=== PATIENT | female | born 1940 | race Caucasian/White ===

== ENCOUNTER 2018-03-26 14:11 | Outpatient (CLI) | payer MEDICARE, BC ==
[~2018-03-26] VITALS: Ht 175.3 cm; Wt 72.6 kg
[2018-03-26] MEDS ORDERED: RIVA20TA PO (14:40)
[2018-03-26] MEDS ORDERED: CALC600T12 PO (14:40)
[2018-03-26] MEDS ORDERED: GLUC100016 PO (14:40)
[2018-03-26] MEDS ORDERED: BUME2TAB3 PO (14:40)
[2018-03-26] MEDS ORDERED: POTA-51 PO (14:40)
[2018-03-26] MEDS ORDERED: MV-M1TAB57 PO (14:40)
[2018-03-26] MEDS ORDERED: METO-370 PO (14:40)
[2018-03-26] MEDS ORDERED: VITA1TAB33 PO (14:40)
[2018-03-26] MEDS ORDERED: EST30C VG (14:40)
[2018-03-26] MEDS ORDERED: ESCI10TA PO (14:40)
[2018-03-26] MEDS ORDERED: CHOL10003 PO (14:40)
[2018-03-26] MEDS ORDERED: LEVO150T6 PO (14:40)
[2018-03-26] MEDS ORDERED: LORA10TA7 PO (14:59)
== END 2018-03-26 14:49 ==
LOC: PREOP 14:11
PROVIDERS: ATTEND Orthopaedic Surgery
DX: Z01.818 Encounter for other preprocedural examination (principal)

== ENCOUNTER 2018-03-30 10:06 | Inpatient (IN) | payer MEDICARE, BC ==
--- NOTE | 2018-03-26 14:59 | NUR ---
CALLED [facility] IN [place] TO VERIFY THE STRENGTHS AND DATES OF THE PRESCRIPTION MEDICATION FOR THE PATIENT. PREOP ENTERED THE LIST IN THE PATIENT REPORTED IT. [facility] FILLED: 03-15-18 XARELTO 20MG DAILY #90 03-04-18 LORATADINE 10MG DAILY PRN #90 (WAS NOT REPORTED IN PREOP BUT ADDED AT THIS TIME) 02-14-18 PREMARIN VAGINAL CREAM TWICE WEEKLY 01-21-18 POTASSIUM 20MEQ BID #180 (ONLY TAKES ONCE DAILY NEEDED WITH BUMEX) 01-21-18 BUMETANIDE 2MG BID #180 (ONLY TAKES ONCE DAILY NEEDED FOR SWELLING) 01-18-18 METOPROLOL SUCC 50MG 1/2 BID #90 (REPORTED 1 HS) 01-18-18 LEVOTHYROXINE 150MCG DAILY #90 12-30-17 ESCITALOPRAM 10MG DAILY #90 OTC MEDS REPORTED: B COMPLEX DAILY CALCIUM DAILY VITAMIN D DAILY GLUCOSAMINE DAILY MTV DAILY
--- NOTE | 2018-03-30 10:10 | NUR ---
pt ambulated to [facility] with cane. changed into gown. upon returning to pt's room. pt had altered ability to speak/answer questions. word salad. family called to room. daughter reports pt was having some changes this a.m. similar to TIA in past, but answered questions appropriately. daughter notes that communication is much more altered at this time. pt has been off xarelto for surgery. pt unable to report exact amount of time due to communication limitations. pt also c/o headache. VS: T 97.7, HR 127, RR 18, BP 144/[address] willis notified of pt condition. they evaluated pt, cancelled surgery, et recommended pt be evaluated in ER. daughter agreed to have pt seen in our ER. 1047: pt to ER via cart for evaluation.
[2018-03-30] MEDS ORDERED: LACTATED RINGERS 1,000 ML IV PRN (10:17)
[2018-03-30] MEDS ORDERED: CELECOXIB 100 MG (CeleBREX) CAP PO ONE (10:30)
[2018-03-30] MEDS ORDERED: DEXAMETHASONE 4 MG/ML SDV (DECADRON) IV ONE (10:30)
[2018-03-30] MEDS ORDERED: ONDANSETRON 4 MG/2 ML (SDV) Z0FRAN IVP ONE (10:30)
[2018-03-30] MEDS ORDERED: GABAPENTIN 600 MG (NEURONTIN) TAB PO ONE (10:30)
[2018-03-30] MEDS ORDERED: ceFAZolin 2 GM IV Premixed 50 ML IV ONE (10:30)
[2018-03-30] MEDS ORDERED: INTRA-ARTICULAR IU ONE ×4 (10:45)
== END 2018-03-30 10:45 | disposition short-term general hospital (02) | DRG 554 ==
LOC: 4TH 10:06 → SURG 10:07
PROVIDERS: ADMIT Orthopaedic Surgery; ATTEND Orthopaedic Surgery
DX: M17.12 Unilateral primary osteoarthritis, left knee (principal); Z53.09 Procedure and treatment not carried out because of other contraindication
CPT/HCPCS: 93005

== ENCOUNTER 2018-03-30 10:47 | Inpatient (IN) | payer MEDICARE, BC ==
[2018-03-30] VITALS (12 sets, daily range): BP systolic 114–176; BP diastolic 59–105
[~2018-03-30] VITALS: Ht 172.7 cm; Wt 75.8 kg
[~2018-03-30 10:47] MED LIST: BUME2TAB3 PO; CALC600T12 PO; CHOL10003 PO; ESCI10TA PO; EST30C VG; GLUC100016 PO; LEVO150T6 PO; LORA10TA7 PO; METO-370 PO; MV-M1TAB57 PO; POTA-51 PO; RIVA20TA PO; VITA1TAB33 PO
--- NOTE | 2018-03-30 10:59 | NUR ---
TO CT PER CART ACCOMPIED BY SAHIL CELESTIN
[2018-03-30 11:06] LABS: BASOPHILS % (AUTO) 0 % (0-10); EOSINOPHILS # (AUTO) 0.3 10^3/uL (0.0-0.3); EOSINOPHILS % (AUTO) 4 % (0-10); HEMATOCRIT 39 % (35-52); HEMOGLOBIN 13.1 G/DL (11.5-16.0); LYMPHOCYTES # (AUTO) 1.9 X 10^3 (1.0-4.0); LYMPHOCYTES % (AUTO) 28 % (12-44); MEAN CORPUSCULAR HEMOGLOBIN 33 PG (25-34); MEAN CORPUSCULAR HGB CONC 34 G/DL (32-36); MEAN CORPUSCULAR VOLUME 98 FL (80-99); MEAN PLATELET VOLUME 9.3 FL (7.4-10.4); MONOCYTES # (AUTO) 0.8 X 10^3 (0.0-1.0); MONOCYTES % (AUTO) 12 % (0-12); NEUTROPHILS # (AUTO) 3.7 X 10^3 (1.8-7.8); NEUTROPHILS % (AUTO) 55 % (42-75); PLATELET COUNT 225 10^3/uL (130-400); RED CELL DISTRIBUTION WIDTH 14.1 % (10.0-14.5); WHITE BLOOD COUNT 6.8 10^3/uL (4.3-11.0)
[2018-03-30] MEDS ORDERED: ALTEPLASE 100 MG/VIAL (ACTIVASE) IV ONE ×2 (11:11→12:00)
[2018-03-30 11:17] LABS: FIBRIN DEGRADATION PRODUCTS 0.61 UG/ML (0.00-0.49); PROTHROMBIN TIME PATIENT 13.3 SEC (12.2-14.7)
--- NOTE | 2018-03-30 11:20 | Diagnostic Imaging Report ---
PROCEDURE: CT head wo r/o stroke. TECHNIQUE: Multiple contiguous axial images were obtained through the brain without the use of intravenous contrast. INDICATION: Stroke. COMPARISON: None FINDINGS: Moderate generalized cerebral and cerebellar parenchymal volume loss. Moderate leukoaraiosis. No intracranial hemorrhage, mass effect, hydrocephalus or extra-axial fluid collections. No CT evidence of a territorial infarction. Intracranial vascular calcifications. Osseous structures are intact. The visualized paranasal sinuses and mastoids are clear. IMPRESSION: 1. No acute intracranial CT findings. 2. Findings discussed with Dr. Ray Montano at 11:12 a.m. on 03/30/2018. Dictated by: Dictated on workstation # [id number]
[2018-03-30 11:21] LABS: ALANINE AMINOTRANSFERASE 17 U/L (0-55); ALBUMIN 4.1 GM/DL (3.2-4.5); ALKALINE PHOSPHATASE 54 U/L (40-136); BILIRUBIN,TOTAL 0.5 MG/DL (0.1-1.0); BUN/CREATININE RATIO 21; CALCIUM 10.1 MG/DL (8.5-10.1); CARBON DIOXIDE 28 MMOL/L (21-32); CHLORIDE 102 MMOL/L (98-107); CREATININE SERUM 0.78 MG/DL (0.60-1.30); GFR ESTIMATED > 60; GLUCOSE 87 MG/DL (70-105); POTASSIUM 4.3 MMOL/L (3.6-5.0); SODIUM 139 MMOL/L (135-145); TOTAL PROTEIN 7.1 GM/DL (6.4-8.2)
--- NOTE | 2018-03-30 11:23 | ED Neurological Problem ---
General Chief Complaint: Neuro-Stroke Like Symptoms Stated Complaint: POSS STROKE Nursing Triage Note: TO ED PER CART FROM DAY SURG. REPORTS SHE HAS BEEN XARELTO FOR 2-5 DAYS FOR WAS TO HAVE L TOTAL KNEE DAUGHTER NOTICED APX 9AM HAVING TROUBLE SPEAKING ON ADMIT TROUBLE WITH SPEECH. Nursing Sepsis Screen: No Definite Risk Source: patient, family, RN/MD Exam Limitations: clinical condition History of Present Illness Date Seen by Provider: Mar 30, 2018 Time Seen by Provider: 10:51 Initial Comments Here with report of difficulty with speech and communication. Does have history of TIAs in the past and is on Xarelto. She is currently also relative 2 days for a total left knee replacement that was to be done today. During the preop time it was noted that she was having difficulty with speech and some confusion. This apparently started at about 9:00 this morning. This seems to be worsening even now. Does have history of atrial fibrillation as well. Denies recent injury or surgeries. She was rolled over from the preop area to the emergency department. Daughter and are at bedside. Timing/Duration: 1-3 hours Severity: moderate Associated Symptoms: confusion; No fatigue, No loss of consciousness, No muscle spasms, No nausea/vomiting, No numbness in legs/feet, No seizures; slurred speech; No vision changes, No weakness Allergies and Home Medications Allergies Coded Allergies: butorphanol (Verified Allergy, Unknown, TONGUE SWELLED, 03/26/18) codeine (Verified Allergy, Unknown, ITCHING, 03/26/18) Home Medications B Complex with Vitamin C 1 Each Tablet, 1 TAB PO DAILY, (Reported) Bumetanide 2 Mg Tablet, 2 MG PO DAILY PRN for SWELLING, (Reported) Calcium Carbonate 600 Mg Tablet, 600 MG PO DAILY, (Reported) Cholecalciferol (Vitamin D3) 1,000 Unit Tablet, 1,000 UNIT PO DAILY, (Reported) Escitalopram Oxalate 10 Mg Tablet, 10 MG PO DAILY, (Reported) Estrogens Conjugated 30 Gm Cr, 1 APPFUL VG SuWe, (Reported) Glucosamine Sulfate 2Kcl 1,000 Mg Tablet, 1,000 MG PO DAILY, (Reported) Levothyroxine Sodium 150 Mcg Tablet, 150 MCG PO DAILY, (Reported) Loratadine 10 Mg Tablet, 10 MG PO DAILY PRN for ALLERGIES, (Reported) Metoprolol Succinate 50 Mg Tab.er.24h, 50 MG PO HS, (Reported) Mv-Mn/Folic Acid/Calcium/Vit K 1 Each Tablet, 1 TAB PO DAILY, (Reported) Potassium Chloride 20 Meq Tablet.er, 20 MEQ PO DAILY PRN for WHEN TAKING BUMETANIDE, (Reported) Rivaroxaban 20 Mg Tablet, 20 MG PO DAILY, (Reported) Patient Home Medication List Home Medication List Reviewed: Yes Review of Systems Review of Systems Constitutional: see HPI; No chills, No fever Eyes: No Symptoms Reported Ears, Nose, Mouth, Throat: no symptoms reported Respiratory: no symptoms reported Cardiovascular: Hx of Intervention, other (irregular and tachycardic) Gastrointestinal: No abdominal pain, No nausea, No vomiting : No Musculoskeletal: No back pain, No muscle pain Psychiatric/Neurological: See HPI, Cognitive Dysfunction, Headache; Denies Weakness All Other Systems Reviewed Negative Unless Noted: Yes Past Msqzhhz-Bcffoe-Xqmorb Hx Past Med/Social Hx: Reviewed Nursing Past Med/Soc Hx Patient Social History Alcohol Use: Denies Use Recreational Drug Use: No Smoking Status: Never a Smoker Recent Foreign Travel: No Contact w/Someone Who Travel: No Recent Infectious Disease Expo: No Recent Hopitalizations: No Immunizations Up To Date Date of Influenza Vaccine: Nov 09, 2017 Seasonal Allergies Seasonal Allergies: No Past Medical History Surgeries: Yes (R wrist fx, R hip fx, knee scope, breast bx) Respiratory: No Cardiac: Yes Neurological: Yes Genitourinary: No Gastrointestinal: No Musculoskeletal: Yes Arthritis, Fractures Endocrine: Yes HEENT: No Cancer: No Psychosocial: No Integumentary: No Blood Disorders: No Family Medical History Reviewed Nursing Family Hx Cardiovascular disease 19 FATHER Completed stroke 19 MOTHER FH: diabetes mellitus 19 FATHER Physical Exam Vital Signs Vital Signs - First Documented 03/30/18 10:47 Pulse 99 Resp 18 B/P (MAP) 170/96 (120) Pulse Ox 99 O2 Delivery Room Air Capillary Refill : Less Than 3 Seconds Height, Weight, BMI Height: 5'9.00" Weight: 165lbs. 0.0oz. 74.487704qh; 23.6 BMI Method:Stated General Appearance: WD/WN, no apparent distress HEENT: PERRL/EOMI, pharynx normal Neck: full range of motion, supple Respiratory: lungs clear, normal breath sounds Cardiovascular: regular rate, rhythm, no murmur Gastrointestinal: non tender, soft Back: normal inspection, no CVA tenderness, no vertebral tenderness Extremities: non-tender, normal inspection Neurologic/Psychiatric: alert, aphasia Crainal Nerves: abnormal speech; No facial asymmetry, No facial droop, No facial paresthesias, No facial weakness Coordination/Gait: other (abnormal ofhj-ob-bjqz bilateral) Motor/Sensory: no motor deficit, no sensory deficit, no pronator drift Skin: normal color, warm/dry Progress/Results/Core Measures Results/Orders Lab Results Laboratory Tests Test 03/30/18 10:54 03/30/18 10:56 03/30/18 11:35 Range/Units Glucometer 95 70-110 MG/DL White Blood Count 6.8 4.3-11.0 10^3/uL Red Blood Count 3.97 L 4.35-5.85 10^6/uL Hemoglobin 13.1 11.5-16.0 G/DL Hematocrit 39 35-52 % Mean Corpuscular Volume 98 80-99 FL Mean Corpuscular Hemoglobin 33 25-34 PG Mean Corpuscular Hemoglobin Concent 34 32-36 G/DL Red Cell Distribution Width 14.1 10.0-14.5 % Platelet Count 225 130-400 10^3/uL Mean Platelet Volume 9.3 7.4-10.4 FL Neutrophils (%) (Auto) 55 42-75 % Lymphocytes (%) (Auto) 28 12-44 % Monocytes (%) (Auto) 12 0-12 % Eosinophils (%) (Auto) 4 0-10 % Basophils (%) (Auto) 0 0-10 % Neutrophils # (Auto) 3.7 1.8-7.8 X 10^3 Lymphocytes # (Auto) 1.9 1.0-4.0 X 10^3 Monocytes # (Auto) 0.8 0.0-1.0 X 10^3 Eosinophils # (Auto) 0.3 0.0-0.3 10^3/uL Basophils # (Auto) 0.0 0.0-0.1 10^3/uL Prothrombin Time 13.3 12.2-14.7 SEC INR Comment 1.0 0.8-1.4 Activated Partial Thromboplast Time 32 24-35 SEC D-Dimer 0.61 H 0.00-0.49 UG/ML Sodium Level 139 135-145 MMOL/L Potassium Level 4.3 3.6-5.0 MMOL/L Chloride Level 102 98-107 MMOL/L Carbon Dioxide Level 28 21-32 MMOL/L Anion Gap 9 5-14 MMOL/L Blood Urea Nitrogen 16 7-18 MG/DL Creatinine 0.78 0.60-1.30 MG/DL Estimat Glomerular Filtration Rate > 60 BUN/Creatinine Ratio 21 Glucose Level 87 70-105 MG/DL Calcium Level 10.1 8.5-10.1 MG/DL Corrected Calcium 10.0 8.5-10.1 MG/DL Total Bilirubin 0.5 0.1-1.0 MG/DL Aspartate Amino Transf (AST/SGOT) 29 5-34 U/L Alanine Aminotransferase (ALT/SGPT) 17 0-55 U/L Alkaline Phosphatase 54 40-136 U/L Troponin I < 0.028 <0.028 NG/ML Total Protein 7.1 6.4-8.2 GM/DL Albumin 4.1 3.2-4.5 GM/DL Urine Color YELLOW Urine Clarity CLEAR Urine pH 8 5-9 Urine Specific [place] 1.010 L 1.016-1.022 Urine Protein NEGATIVE NEGATIVE Urine Glucose (UA) NEGATIVE NEGATIVE Urine Ketones NEGATIVE NEGATIVE Urine Nitrite NEGATIVE NEGATIVE Urine Bilirubin NEGATIVE NEGATIVE Urine Urobilinogen NORMAL NORMAL MG/DL Urine Leukocyte Esterase NEGATIVE NEGATIVE Urine RBC (Auto) NEGATIVE NEGATIVE Urine RBC NONE /HPF Urine WBC NONE /HPF Urine Squamous Epithelial Cells RARE /HPF Urine Crystals PRESENT H /LPF Urine Amorphous Sediment RARE DUDLEY PHOSPHATE H /LPF Urine Bacteria NEGATIVE /HPF Urine Casts NONE /LPF Urine Mucus NEGATIVE /LPF Urine Culture Indicated NO My Orders Orders - RAY HENSLEY MD Cbc With Automated Diff (03/30/18 10:59) Protime With Inr (03/30/18 10:59) Partial Thromboplastin Time (03/30/18 10:59) Comprehensive Metabolic Panel (03/30/18 10:59) Fibrin Degradation Products (03/30/18 10:59) Troponin I (03/30/18 10:59) Ua Culture If Indicated (03/30/18 10:59) Chest 1 View, Ap/Pa Only (03/30/18 10:59) Catheter(Urinary) Insert & Ass 03,15 (03/30/18 10:59) Ekg Tracing (03/30/18 10:59) Accucheck Stat ONCE (03/30/18 10:59) Saline Lock/Iv-Start (03/30/18 10:59) Saline Lock/Iv-Start (03/30/18 10:59) Vital Signs Stroke Patient Q15M (03/30/18 10:59) Ct Head Wo-R/O Stroke (03/30/18 10:59) O2 (03/30/18 10:59) Intake & Output 06,14,22 (03/30/18 10:59) Monitor-Rhythm Ecg Trace Only (03/30/18 10:59) Dysphagia Screening Tool (03/30/18 10:59) Sao2 W/End-Tidal Monitoring (O Q15M (03/30/18 10:59) Lipid Panel (03/31/18 06:00) I-Stat Bedside Testing (03/30/18 10:59) Ct Angio Head/Neck (03/30/18 11:02) Ct Head Perfusion W/ Contrast (03/30/18 11:02) Alteplase (Activase) (Activase Injection (03/30/18 11:11) Labetalol Injection (Normodyne Injection (03/30/18 11:45) Labetalol Injection (Normodyne Injection (03/30/18 11:28) Accucheck Stat ONCE (03/30/18 11:30) Saline Lock/Iv-Start (03/30/18 11:30) Saline Lock/Iv-Start (03/30/18 11:30) Vital Signs Stroke Patient Q15M (03/30/18 11:30) O2 (03/30/18 11:30) Intake & Output 06,14,22 (03/30/18 11:30) Dysphagia Screening Tool (03/30/18 11:30) Post Thrombolytic Adminstratio (03/30/18 11:30) Iohexol Injection (Omnipaque 350 Mg/Ml 1 (03/30/18 11:30) Contrast Received (Contrast Received) (03/30/18 11:30) Ns (Ivpb) (Sodium Chloride 0.9%) (03/30/18 11:30) Alteplase (Activase) (Activase Injection (03/30/18 12:00) Post Thrombolytic Adminstratio (03/30/18 12:00) Ct Head Wo (03/31/18 12:00) Diltiazem Injection (Cardizem Injection) (03/30/18 12:15) Ns (Ivpb) (Sodium C... W/Diltiazem Injec (03/30/18 12:15) Acetaminophen Tablet (Tylenol Tablet) (03/30/18 12:23) Ondansetron Injection (Zofran Injectio (03/30/18 13:45) Medications Given in ED Current Medications Medications Dose Ordered Sig/Pedro Route Start Time Stop Time Status Last Admin Dose Admin Acetaminophen 500 mg STK-MED ONCE .ROUTE 03/30/18 12:23 03/30/18 12:29 DC 03/30/18 12:30 1,000 MG Alteplase, Recombinant 100 mg STK-MED ONCE IV 03/30/18 11:11 03/30/18 11:17 DC 03/30/18 11:40 100 MG Diltiazem HCl 10 mg ONCE ONCE IVP 03/30/18 12:15 03/30/18 12:16 DC 03/30/18 12:07 10 MG Iohexol 150 ml ONCE ONCE IV 03/30/18 11:30 03/30/18 11:35 DC 03/30/18 11:36 150 ML Labetalol HCl 20 mg STK-MED ONCE .ROUTE 03/30/18 11:28 03/30/18 11:34 DC 03/30/18 11:34 20 MG Ondansetron HCl 4 mg ONCE ONCE IVP 03/30/18 13:45 03/30/18 13:46 DC 03/30/18 13:46 4 MG Sodium Chloride 250 ml ONCE ONCE IV 03/30/18 11:30 03/30/18 11:35 DC 03/30/18 11:36 250 ML Vital Signs/I&O 03/30/18 03/30/18 03/30/18 10:47 11:39 12:19 Pulse 99 93 Resp 18 18 B/P (MAP) 170/96 (120) 152/105 (121) 152/80 (104) Pulse Ox 99 95 O2 Delivery Room Air Room Air Blood Pressure Mean: 120 iStat Bedside Lab Testing Sodium (Na): 138.00 Potassium (K): 4.20 Chloride (CI): 99.00 TCO2: 28.00 Glucose (Glu): 84.00 Urea Nitrogen (BUN)/Urea: 17.00 Creatinine (Crea): 0.70 Anion Gap*: 16.00 FSBG Bedside Testing Finger Stick Blood Glucose: 95 Blood Glucose Action Taken: IN ROOM Progress Progress Note : Progress Note Seen and evaluated. Stroke activation on arrival. Patient is at 2 hours since last known well time essentially at time of arrival to the emergency department. Patient is 5 on the stroke scale for confusion and difficulty with time date as well as inappropriate speech and inability to perform [id number] bilateral. Stroke order set initiated. Rapid CT assessment done. No acute bleed. Patient meets indication for TPA. Risk and benefits were discussed with the patient and family and it was elected to initiate TPA. I also did discuss the case with Dr. Wilson at [facility] stroke team. She agrees with TPA as well. Bolus initiated at 1140. Resolution began shortly after with respect to her symptoms. 1200: Symptoms have resolved and drip is continuing. CT angiogram of the head and neck and CT perfusion head work done and no significant large vessel occlusion noted per preliminary read and discussion with the radiologist. Patient noted to have atrial fibrillation with rapid ventricular response. She did receive 2 boluses of labetalol as diastolic pressure did come above 110 after bolus initiated. Cardizem drip initiated at 10 mg an hour after bolus of 10 mg. Monitor patient. 1300: Rapid ventricular response has resolved as patient still in A. fib which she is and chronically. Blood pressure 160s over 80s currently. We will decrease the Cardizem to 5 mg/h 1310: I did discuss the case with Dr. MCARTHUR and he accepts patient for admission, inpatient status. 1300: I discussed the case with Dr. Wilkes and he accepts patient in consult. 1325: I did discuss the case with Dr. Kingston and he accepts patient in consult. Patient and family agree with plan. Initial ECG Impression Date: Mar 30, 2018 Initial ECG Impression Time: 11:31 Initial ECG Rate: 123 Initial ECG Rhythm: A Fib/Flutter Comment Atrial fibrillation with rapid ventricular response. Right axis deviation. No evidence of ST elevation NH. No previous available for comparison. Interpreted by me. Diagnostic Imaging Diagonstic Imaging: CT Plain Films/CT/US/NM/MRI: head Comments [facility], [place] NAME: FABIAN [facility] REC#: [id number] PT STATUS: REG ER : 1940 PHYSICIAN: RAY HENSLEY MD ADMIT DATE: 03/30/18/ER Draft Date of Exam:03/30/18 CT HEAD WO-R/O STROKE PROCEDURE: CT head wo r/o stroke. TECHNIQUE: Multiple contiguous axial images were obtained through the brain without the use of intravenous contrast. INDICATION: Stroke. COMPARISON: None FINDINGS: Moderate generalized cerebral and cerebellar parenchymal volume loss. Moderate leukoaraiosis. No intracranial hemorrhage, mass effect, hydrocephalus or extra-axial fluid collections. No CT evidence of a territorial infarction. Intracranial vascular calcifications. Osseous structures are intact. The visualized paranasal sinuses and mastoids are clear. IMPRESSION: 1. No acute intracranial CT findings. 2. Findings discussed with Dr. Ray Hensley at 11:12 a.m. on 03/30/2018. Dictated on workstation # [id number] Dict: 03/30/18 1109 Trans: 03/30/18 1120 AMARILYS [id number] Interpreted by: SEUN HURTADO MD Electronically signed by: Suziegokeaton Imaging: Xray Plain Films/CT/US/NM/MRI: chest Comments [facility] [place], [place] NAME: [facility]IAN [facility] REC#: [id number] PT STATUS: REG ER : 1940 PHYSICIAN: RAY HENSLEY MD ADMIT DATE: 03/30/18/ER Draft Date of Exam:03/30/18 CHEST 1 VIEW, AP/PA ONLY INDICATION: Altered mental status. COMPARISON: None available. FINDINGS: Visualized lungs are clear. No pleural effusion or pneumothorax. Cardiomegaly is present with a left pectoral transvenous dual-chamber pacemaker. IMPRESSION: No acute process by portable radiography. Dictated on workstation # [id number] Dict: 03/30/18 1149 Trans: 03/30/18 1153 [id number] Interpreted by: HOMERO NAIDU MD Electronically signed by: Ramírez Imaging: CT Plain Films/CT/US/NM/MRI: head, other Comments [facility] [place], [place] NAME: F[facility]IAN [facility] REC#: [id number] PT STATUS: REG ER : 1940 PHYSICIAN: RAY HENSLEY MD ADMIT DATE: 03/30/18/ER Draft Date of Exam:03/30/18 CT ANGIO HEAD/NECK PROCEDURE: CT angiography of the head and CT angiography of the neck with and without contrast. TECHNIQUE: Contiguous noncontrast images were obtained from the skull base through the vertex. After intravenous contrast administration, helical CT angiography of the neck was performed. Source data was reformatted into multiple MIP projections. Delayed post contrast acquisition was also obtained. INDICATION: Dysphagia. COMPARISON: Noncontrast CT head from earlier same day. FINDINGS: CTA NECK: Included portions of the aortic arch shows mild calcified aortic atherosclerosis. There is also mild calcified atherosclerosis at the origin of the right brachiocephalic and left subclavian arteries. There is mild tortuosity to the bilateral common carotid arteries. These vessels are otherwise normal in course and caliber. Note is also made of mild calcified atherosclerotic disease of the bilateral carotid bulbs extending into the proximal portion of the bilateral internal carotid arteries. This, however, results in less than 20% stenosis on each side. There is also mild and calcified atherosclerosis of the distal intracranial portions of the bilateral internal carotid arteries. Percentage of stenosis is difficult to assess, but there is normal distal downstream opacification. Within the posterior circulation, the left vertebral artery is dominant. The right vertebral artery has a diminutive hypoplastic appearance, but does appear otherwise patent. Note is also made of moderate calcified atherosclerosis of the distal left vertebral artery, but without focal stenosis. Osseous structures show age-related degenerative changes of the cervical spine. No acute bony abnormalities are identified. Included portions of the lung apices are clear. CTA [place]: The A1 segment on the right is unopacified. This, however, may be on a congenital or developmental basis. Otherwise, there is normal opacification of the bilateral anterior and middle cerebral arteries. Anterior communicating artery is well visualized. There is no evidence of aneurysm, intraluminal thrombosis, or vascular malformation within the anterior circulation. Within the posterior circulation, there is normal appearance of the basilar artery. There is normal enhancement of the bilateral superior cerebellar and posterior cerebral arteries. Posterior communicating arteries are not well visualized on either side, but there is no evidence of aneurysm, vascular malformation, nor intraluminal thrombosis within the posterior circulation. CT HEAD POSTCONTRAST: Postcontrast images show no abnormal areas of enhancement. There is no mass effect or midline shift. Note is again made of mild generalized prominence of ventricles and cortical sulci consistent with background of age-related parenchymal volume loss. There are also scattered and confluent areas of decreased attenuation within the periventricular and subcortical deep white matter suggestive of underlying chronic small vessel ischemic disease. There is no large area of loss of normal tyson-white matter junction differentiation to suggest acute territorial infarct. There is no evidence of intra-or extra-axial intracranial hemorrhage on this postcontrast exam. Bony calvarium is intact. Visualized portions of paranasal sinuses and mastoid air cells are clear. IMPRESSION: 1. Moderate scattered calcified atherosclerosis of the head and neck, but no evidence of intraluminal thrombosis, vascular malformation, nor aneurysm. 2. No acute intracranial abnormality. No CT evidence of acute infarct, mass, or hemorrhage. 3. Age-related parenchymal volume loss and chronic appearing small vessel ischemic changes within the deep white matter. 4. 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 Dictated on workstation # [id number] Dict: 03/30/18 1217 Trans: 03/30/18 1239 [facility] [id number] Interpreted by: AURE SEN MD Electronically signed by: Diagonstic Imaging: CT Plain Films/CT/US/NM/MRI: head Comments [facility] [place] NAME: [facility]IAN [facility] REC#: [id number] PT STATUS: REG ER : 1940 PHYSICIAN: RAY HENSLEY MD ADMIT DATE: 03/30/18/ER Draft Date of Exam:03/30/18 CT HEAD PERFUSION W/ CONTRAST INDICATION: Slurred speech. COMPARISON: Noncontrast CT head from earlier same day. TECHNIQUE: Post contrast CT head perfusion scan was performed. FINDINGS: Total CBF less than 30% volume: 0 mL. Total Tmax greater than 6 seconds volume: 0 mL. Total mismatch difference: 0 mL. Total mismatch ratio: None. Hypoperfusion index: Not applicable. Source images were also created and reviewed and show no large defect on the Tmax, cerebral blood flow, nor cerebral volume images. Comparison of the different sequences also demonstrates no appreciable mismatch. IMPRESSION: 1. Normal CT head perfusion study. Dictated on workstation # [id number] Dict: 03/30/18 1201 Trans: 03/30/18 1210 [id number] Interpreted by: AURE SEN MD Electronically signed by: Departure Communication (Admissions) Time/Spoke to Admitting Phy: 13:10 Time/Spoke to Consulting Phy: 13:00 Impression Primary Impression: Cerebrovascular accident due to cerebral artery occlusion Additional Impression: Atrial fibrillation with rapid ventricular response Disposition: ADMITTED INPATIENT Condition: Stable Admissions Decision to Admit Reason: Admit from ER (General) Decision to Admit/Date: Mar 30, 2018 Time/Decision to Admit Time: 13:00 Departure-Patient Inst. Referrals: NO,LOCAL PHYSICIAN (PCP/Family) Primary Care Physician RAY HENSLEY MD Mar 30, 2018 11:23
--- NOTE | 2018-03-30 11:26 | NUR ---
BACK FROM CT
[2018-03-30] MEDS ORDERED: LABETALOL HCL 20 MG/4 ML VIAL ONE (11:28)
[2018-03-30] MEDS ORDERED: NS 250 ML (IVPB) BAG IV ONE (11:30)
[2018-03-30] MEDS ORDERED: RECEIVED CONTRAST (Hold Metformin) IV SCH (11:30)
[2018-03-30] MEDS ORDERED: IOHEXOL 350 MG/ML 150 ML (OMNIPAQUE 350) VIAL IV ONE (11:30)
--- NOTE | 2018-03-30 11:40 | NUR ---
BOLUS OF 6.58 MG INFUSION STARTED AT 61.2 MG/HR
[2018-03-30] MEDS ORDERED: LABETALOL HCL 20 MG/4 ML VIAL IV ONE (11:45)
[2018-03-30 11:46] LABS: BILIRUBIN,URINE NEGATIVE (NEGATIVE); CLARITY,URINE CLEAR; COLOR,URINE YELLOW; GLUCOSE, URINE (UA) NEGATIVE (NEGATIVE); KETONES,URINE NEGATIVE (NEGATIVE); LEUKOCYTE ESTERASE ,URINE NEGATIVE (NEGATIVE); NITRITE,URINE NEGATIVE (NEGATIVE); PH,URINE 8 (5-9); PROTEIN,URINE NEGATIVE (NEGATIVE); UROBILINOGEN,URINE NORMAL (NORMAL)
--- NOTE | 2018-03-30 11:48 | NUR ---
FLUIDS FROM DAY SURG INFUSING
--- NOTE | 2018-03-30 11:49 | NUR ---
FAMILY AT BEDSIDE SPEECH CON'T TO IMPROVE
[2018-03-30 11:52] LABS: AMORPHOUS SEDIMENT,UR RARE AMOR PHOSPHATE /LPF; BACTERIA,URINE NEGATIVE /HPF; SQUAMOUS EPITHELIAL CELL,UR RARE /HPF
--- NOTE | 2018-03-30 11:54 | Diagnostic Imaging Report ---
INDICATION: Altered mental status. COMPARISON: None available. FINDINGS: Visualized lungs are clear. No pleural effusion or pneumothorax. Cardiomegaly is present with a left pectoral transvenous dual-chamber pacemaker. IMPRESSION: No acute process by portable radiography. Dictated by: Dictated on workstation # [id number]
--- NOTE | 2018-03-30 11:57 | NUR ---
C/O R WRIST IV HURTING AREA SOFT FLUSHES WITHOUT PROBLEM MARE Lee RN VERFIED
--- NOTE | 2018-03-30 12:11 | Diagnostic Imaging Report ---
INDICATION: Slurred speech. COMPARISON: Noncontrast CT head from earlier same day. TECHNIQUE: Post contrast CT head perfusion scan was performed. FINDINGS: Total CBF less than 30% volume: 0 mL. Total Tmax greater than 6 seconds volume: 0 mL. Total mismatch difference: 0 mL. Total mismatch ratio: None. Hypoperfusion index: Not applicable. Source images were also created and reviewed and show no large defect on the Tmax, cerebral blood flow, nor cerebral volume images. Comparison of the different sequences also demonstrates no appreciable mismatch. IMPRESSION: 1. Normal CT head perfusion study. Dictated by: Dictated on workstation # [id number]
[2018-03-30] MEDS ORDERED: DILTIAZEM INJECTION 125 MG in NS (IVPB) 100 ML IV SCH (12:15)
[2018-03-30] MEDS ORDERED: DILTIAZEM 25 MG/5 ML INJ (CARDIZEM) VIAL IVP ONE (12:15)
[2018-03-30] MEDS ORDERED: ACETAMINOPHEN 500 MG TAB (TYLENOL) ONE (12:23)
--- NOTE | 2018-03-30 12:24 | NUR ---
CON'T TO C/O HEADACHE REPORTED HER HEAD HURTING ON ADMIT.
--- NOTE | 2018-03-30 12:39 | Diagnostic Imaging Report ---
PROCEDURE: CT angiography of the head and CT angiography of the neck with and without contrast. TECHNIQUE: Contiguous noncontrast images were obtained from the skull base through the vertex. After intravenous contrast administration, helical CT angiography of the neck was performed. Source data was reformatted into multiple MIP projections. Delayed post contrast acquisition was also obtained. INDICATION: Dysphagia. COMPARISON: Noncontrast CT head from earlier same day. FINDINGS: CTA NECK: Included portions of the aortic arch shows mild calcified aortic atherosclerosis. There is also mild calcified atherosclerosis at the origin of the right brachiocephalic and left subclavian arteries. There is mild tortuosity to the bilateral common carotid arteries. These vessels are otherwise normal in course and caliber. Note is also made of mild calcified atherosclerotic disease of the bilateral carotid bulbs extending into the proximal portion of the bilateral internal carotid arteries. This, however, results in less than 20% stenosis on each side. There is also mild and calcified atherosclerosis of the distal intracranial portions of the bilateral internal carotid arteries. Percentage of stenosis is difficult to assess, but there is normal distal downstream opacification. Within the posterior circulation, the left vertebral artery is dominant. The right vertebral artery has a diminutive hypoplastic appearance, but does appear otherwise patent. Note is also made of moderate calcified atherosclerosis of the distal left vertebral artery, but without focal stenosis. Osseous structures show age-related degenerative changes of the cervical spine. No acute bony abnormalities are identified. Included portions of the lung apices are clear. CTA [place]: The A1 segment on the right is unopacified. This, however, may be on a congenital or developmental basis. Otherwise, there is normal opacification of the bilateral anterior and middle cerebral arteries. Anterior communicating artery is well visualized. There is no evidence of aneurysm, intraluminal thrombosis, or vascular malformation within the anterior circulation. Within the posterior circulation, there is normal appearance of the basilar artery. There is normal enhancement of the bilateral superior cerebellar and posterior cerebral arteries. Posterior communicating arteries are not well visualized on either side, but there is no evidence of aneurysm, vascular malformation, nor intraluminal thrombosis within the posterior circulation. CT HEAD POSTCONTRAST: Postcontrast images show no abnormal areas of enhancement. There is no mass effect or midline shift. Note is again made of mild generalized prominence of ventricles and cortical sulci consistent with background of age-related parenchymal volume loss. There are also scattered and confluent areas of decreased attenuation within the periventricular and subcortical deep white matter suggestive of underlying chronic small vessel ischemic disease. There is no large area of loss of normal tyson-white matter junction differentiation to suggest acute territorial infarct. There is no evidence of intra-or extra-axial intracranial hemorrhage on this postcontrast exam. Bony calvarium is intact. Visualized portions of paranasal sinuses and mastoid air cells are clear. IMPRESSION: 1. Moderate scattered calcified atherosclerosis of the head and neck, but no evidence of intraluminal thrombosis, vascular malformation, nor aneurysm. 2. No acute intracranial abnormality. No CT evidence of acute infarct, mass, or hemorrhage. 3. Age-related parenchymal volume loss and chronic appearing small vessel ischemic changes within the deep white matter. 4. 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 Dictated by: Dictated on workstation # [id number]
--- NOTE | 2018-03-30 12:49 | NUR ---
PLACE ON 02 WHEN PATIENT SLEEPS SA02 GOES TO 90%
--- NOTE | 2018-03-30 13:00 | NUR ---
Food Service Tray Attendant requested to provide support to pt's daughter (Debbie). Also offered support to pt's (Kervin) who demonstrates signs of dementia and is hard of hearing. Offered active listening and reassuring presence. Pt is Yarsani and family's noe is a source of strength and comfort at this time.
--- NOTE | 2018-03-30 13:04 | NUR ---
FAMILY BACK TO BEDSIDE.
--- NOTE | 2018-03-30 13:38 | NUR ---
CALLED FOR A ROOM
--- NOTE | 2018-03-30 13:40 | NUR ---
PATIENT C/O NAUSEA. MEDS GIVEN
[2018-03-30] MEDS ORDERED: ONDANSETRON 4 MG/2 ML (SDV) Z0FRAN IVP ONE (13:45)
--- NOTE | 2018-03-30 13:54 | NUR ---
DAUGHTER TO DESK STAES R ARM ITCHING TO ROOM ARM APPEARS SL DISCOLORED. DR ARIZA.
--- NOTE | 2018-03-30 13:58 | NUR ---
DR JESSICA DELUCA B/P CUFF REPORTS TOOK CUFF OFF AND ARM BETTER
--- NOTE | 2018-03-30 14:08 | Consultation-Cardiology ---
HPI-Cardiology Cardiology Consultation: Date of Consultation 03/30/18 Time Seen by a Provider: 14:10 Date of Admission 03-30-18 Attending Physician Earl Correa MD Admitting Physician Belkys,Local Physician Consulting Physician Denis Kingston MD HPI: Chief Complaint: CVA A-fib with RVR Ms. Curtis is a 77 year old female who is being admitted to ICU from the ED. 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 Sahu at [facility]. Her daughter and are at the bedside. I have seen her in the ED. She reports she has chronic a-fib for which she is on Xarelto. However, d/t a scheduled knee replacement which was to be done today she had been off the Xarelto for 2 days. Daughter reports she has been in her usual state of health up until this morning when she began to have confusion and difficulty with speech when continued to progress while waiting for her surgery. She was brought to the ED from out pt surgery. At the time of this exam she is searching for words during conversation. She denies any c/o CP, palpitations, syncope or near syncope. No c/o LE swelling. She reports she does have a PPM which was implanted "several years ago" d/t a slow HR. She reports she take Metoprolol for HR and BP. Review of Systems-Cardiology Review of Systems Constitutional: No chills, No fever Eyes: No vision change Ears/Nose/Throat: No epistaxis, No recent hearing loss Respiratory: As described under HPI Cardiovascular: As described under HPI Gastrointestinal: No constipation, No diarrhea, No nausea, No vomiting Genitourinary: No dysuria, No hematuria : No Musculoskeletal: no symptoms reported Skin: No rash, No ulcerations Psychiatric/Neurological: As described under HPI Hematologic: No bleeding abnormalities All Other Systems Reviewed Negative Unless Noted: Yes IQZ-Zukyrd-[id number] Hx Patient Social History Alcohol Use: Denies Use Recreational Drug Use: No Smoking Status: Never a Smoker Recent Foreign Travel: No Recent Infectious Disease Expo: No Hospitalization with Isolation: Denies Immunizations Up To Date Date of Influenza Vaccine: Nov 09, 2017 Past Medical History PMH As described under Assessment. Family Medical History Family Medical History: Reported h/o of father having CAD and DM. Mother had a CVA. Family History: Cardiovascular disease 19 FATHER Completed stroke 19 MOTHER FH: diabetes mellitus 19 FATHER Allergies and Home Medications Allergies Coded Allergies: butorphanol (Verified Allergy, Unknown, TONGUE SWELLED, 03/26/18) codeine (Verified Allergy, Unknown, ITCHING, 03/26/18) Home Medications B Complex with Vitamin C 1 Each Tablet, 1 TAB PO DAILY, (Reported) Bumetanide 2 Mg Tablet, 2 MG PO DAILY PRN for SWELLING, (Reported) Calcium Carbonate 600 Mg Tablet, 600 MG PO DAILY, (Reported) Cholecalciferol (Vitamin D3) 1,000 Unit Tablet, 1,000 UNIT PO DAILY, (Reported) Escitalopram Oxalate 10 Mg Tablet, 10 MG PO DAILY, (Reported) Estrogens Conjugated 30 Gm Cr, 1 APPFUL VG SuWe, (Reported) Glucosamine Sulfate 2Kcl 1,000 Mg Tablet, 1,000 MG PO DAILY, (Reported) Levothyroxine Sodium 150 Mcg Tablet, 150 MCG PO DAILY, (Reported) Loratadine 10 Mg Tablet, 10 MG PO DAILY PRN for ALLERGIES, (Reported) Metoprolol Succinate 50 Mg Tab.er.24h, 50 MG PO HS, (Reported) Mv-Mn/Folic Acid/Calcium/Vit K 1 Each Tablet, 1 TAB PO DAILY, (Reported) Potassium Chloride 20 Meq Tablet.er, 20 MEQ PO DAILY PRN for WHEN TAKING BUMETANIDE, (Reported) Rivaroxaban 20 Mg Tablet, 20 MG PO DAILY, (Reported) Physical Exam-Cardiology Physical Exam Vital Signs/I&O 03/30/18 03/30/18 03/30/18 03/30/18 21:00 22:00 23:35 23:40 Temp 98.3 Pulse 75 71 Resp 15 14 B/P (MAP) 114/74 (87) 127/65 (85) Pulse Ox 95 94 95 O2 Delivery Room Air Room Air Room Air 03/31/18 03/31/18 03/31/18 03/31/18 00:00 01:00 01:00 01:15 Pulse 69 72 72 73 Resp 12 13 17 B/P (MAP) 113/70 (84) 120/66 (84) Pulse Ox 93 91 93 O2 Delivery Room Air Room Air Nasal Cannula O2 Flow Rate 2.00 03/31/18 03/31/18 03/31/18 03/31/18 02:00 03:00 03:20 04:00 Temp 98.1 Pulse 73 70 70 Resp 20 12 11 B/P (MAP) 107/54 (71) 112/63 (79) 129/69 (89) Pulse Ox 94 95 96 O2 Delivery Nasal Cannula Nasal Cannula Nasal Cannula Nasal Cannula O2 Flow Rate 2.00 2.00 2.00 2.00 03/31/18 03/31/18 03/31/18 03/31/18 04:15 05:00 06:00 07:00 Pulse 69 69 70 Resp 12 9 B/P (MAP) 125/72 (89) 133/71 (91) Pulse Ox 95 98 93 O2 Delivery Nasal Cannula Nasal Cannula Nasal Cannula O2 Flow Rate 2.00 2.00 2.00 03/31/18 03/31/18 03/31/18 03/31/18 07:00 08:00 08:00 08:14 Temp 98.1 Pulse 69 71 Resp 30 18 B/P (MAP) 132/75 (94) 141/78 (99) Pulse Ox 98 99 O2 Delivery Nasal Cannula Nasal Cannula Nasal Cannula O2 Flow Rate 2.00 2.00 2.00 03/31/18 00:00 Intake Total 320 ml Output Total 2200 ml Balance -1880 ml Capillary Refill : Less Than 3 Seconds Constitutional: well-developed, well-nourished, other (Word searching) HEENT: PERRL, hearing is well preserved, oral hygience is good Neck: No carotid bruit; carotid pulses are 2 + bilaterally Respiratory: No accessory muscle use, No respiratory distress; chest expansion is symmetric, chest is bilaterally symmetric, lungs clear to auscultation Cardiovascular: irregularly irregular; No JVD; S1 and S2 Gastrointestinal: No tender; soft, round, audible bowel sounds Rectal: deferred Genital/Rectal: other (Urinary catheter to DD; clear yellow urine) Extremities: no lower extremity edema bilateral Neurologic/Psychiatric: alert (appropriate, word search - multiple attempts to verbalize and location, but does report accurately ), other (word searching) , grossly intact, power is 5/5 both on sides Skin: No rash, No ulcerations; other (brusing to right wrist at site of IV) Data Review Labs Laboratory Tests 03/30/18 10:54: Glucometer 95 03/30/18 10:56: White Blood Count 6.8, Red Blood Count 3.97L, Hemoglobin 13.1, Hematocrit 39, Mean Corpuscular Volume 98, Mean Corpuscular Hemoglobin 33, Mean Corpuscular Hemoglobin Concent 34, Red Cell Distribution Width 14.1, Platelet Count 225, Mean Platelet Volume 9.3, Neutrophils (%) (Auto) 55, Lymphocytes (%) (Auto) 28, Monocytes (%) (Auto) 12, Eosinophils (%) (Auto) 4, Basophils (%) (Auto) 0, Neutrophils # (Auto) 3.7, Lymphocytes # (Auto) 1.9, Monocytes # (Auto) 0.8, Eosinophils # (Auto) 0.3, Basophils # (Auto) 0.0, Prothrombin Time 13.3, INR Comment 1.0, Activated Partial Thromboplast Time 32, D-Dimer 0.61H, Sodium Level 139, Potassium Level 4.3, Chloride Level 102, Carbon Dioxide Level 28, Anion Gap 9, Blood Urea Nitrogen 16, Creatinine 0.78, Estimat Glomerular Filtration Rate > 60, BUN/Creatinine Ratio 21, Glucose Level 87, Calcium Level 10.1, Corrected Calcium 10.0, Total Bilirubin 0.5, Aspartate Amino Transf (AST/ SGOT) 29, Alanine Aminotransferase (ALT/SGPT) 17, Alkaline Phosphatase 54, Troponin I < 0.028, Total Protein 7.1, Albumin 4.1 03/30/18 11:35: Urine Color YELLOW, Urine Clarity CLEAR, Urine pH 8, Urine Specific Chancellor 1.010L, Urine Protein NEGATIVE, Urine Glucose (UA) NEGATIVE, Urine Ketones NEGATIVE, Urine Nitrite NEGATIVE, Urine Bilirubin NEGATIVE, Urine Urobilinogen NORMAL, Urine Leukocyte Esterase NEGATIVE, Urine RBC (Auto) NEGATIVE, Urine RBC NONE, Urine WBC NONE, Urine Squamous Epithelial Cells RARE, Urine Crystals PRESENTH, Urine Amorphous Sediment RARE DUDLEY PHOSPHATEH, Urine Bacteria NEGATIVE , Urine Casts NONE, Urine Mucus NEGATIVE, Urine Culture Indicated NO Radiology NAME: FABIAN [facility] REC#: [id number] PT STATUS: REG ER : 1940 PHYSICIAN: FIONA HENSLEY MD ADMIT DATE: 03/30/18/ER Draft Date of Exam:03/30/18 CT ANGIO HEAD/NECK PROCEDURE: CT angiography of the head and CT angiography of the neck with and without contrast. TECHNIQUE: Contiguous noncontrast images were obtained from the skull base through the vertex. After intravenous contrast administration, helical CT angiography of the neck was performed. Source data was reformatted into multiple MIP projections. Delayed post contrast acquisition was also obtained. INDICATION: Dysphagia. COMPARISON: Noncontrast CT head from earlier same day. FINDINGS: CTA NECK: Included portions of the aortic arch shows mild calcified aortic atherosclerosis. There is also mild calcified atherosclerosis at the origin of the right brachiocephalic and left subclavian arteries. There is mild tortuosity to the bilateral common carotid arteries. These vessels are otherwise normal in course and caliber. Note is also made of mild calcified atherosclerotic disease of the bilateral carotid bulbs extending into the proximal portion of the bilateral internal carotid arteries. This, however, results in less than 20% stenosis on each side. There is also mild and calcified atherosclerosis of the distal intracranial portions of the bilateral internal carotid arteries. Percentage of stenosis is difficult to assess, but there is normal distal downstream opacification. Within the posterior circulation, the left vertebral artery is dominant. The right vertebral artery has a diminutive hypoplastic appearance, but does appear otherwise patent. Note is also made of moderate calcified atherosclerosis of the distal left vertebral artery, but without focal stenosis. Osseous structures show age-related degenerative changes of the cervical spine. No acute bony abnormalities are identified. Included portions of the lung apices are clear. CTA [place]: The A1 segment on the right is unopacified. This, however, may be on a congenital or developmental basis. Otherwise, there is normal opacification of the bilateral anterior and middle cerebral arteries. Anterior communicating artery is well visualized. There is no evidence of aneurysm, intraluminal thrombosis, or vascular malformation within the anterior circulation. Within the posterior circulation, there is normal appearance of the basilar artery. There is normal enhancement of the bilateral superior cerebellar and posterior cerebral arteries. Posterior communicating arteries are not well visualized on either side, but there is no evidence of aneurysm, vascular malformation, nor intraluminal thrombosis within the posterior circulation. CT HEAD POSTCONTRAST: Postcontrast images show no abnormal areas of enhancement. There is no mass effect or midline shift. Note is again made of mild generalized prominence of ventricles and cortical sulci consistent with background of age-related parenchymal volume loss. There are also scattered and confluent areas of decreased attenuation within the periventricular and subcortical deep white matter suggestive of underlying chronic small vessel ischemic disease. There is no large area of loss of normal tyson-white matter junction differentiation to suggest acute territorial infarct. There is no evidence of intra-or extra-axial intracranial hemorrhage on this postcontrast exam. Bony calvarium is intact. Visualized portions of paranasal sinuses and mastoid air cells are clear. IMPRESSION: 1. Moderate scattered calcified atherosclerosis of the head and neck, but no evidence of intraluminal thrombosis, vascular malformation, nor aneurysm. 2. No acute intracranial abnormality. No CT evidence of acute infarct, mass, or hemorrhage. 3. Age-related parenchymal volume loss and chronic appearing small vessel ischemic changes within the deep white matter. 4. 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 Sahu at [facility] - last interrogation Mar 02, 2018 HTN Discussion and Recomendations Non-hemorrhagic CVA for which she received tPA in the ED on 03-30-18. We advise Xarelto 20mg be resumed 24 hours after tPA dose which would be approx 1330 on . PPM implanted d/t bradycardia per pt report. This is followed by Dr. Sahu at [facility] in [place] - device reportedly last interrogated on (Dr. Sahu's office called by ICU nurse to verify device is NOT an AICD and last interrogation date) Chronic a-fib - presented with a-fib with RVR - rate improved with Cardizem gtt HTN - not well controlled - resume BB - Toprol XL 50mg daily Request records from [facility] - Dr. Sahu Management of stroke per [facility] team Monitor lab Further recs will be based on her hospital course We would like to thank medical services for this consult BAIMA,DEEPA L DIRECTOR DENTAL SERVICES Mar 30, 2018 14:08
--- NOTE | 2018-03-30 14:10 | NUR ---
CALLED TO GIVE REPORT STAFF DID NOT ANSWER PHONE
[2018-03-30] MEDS ORDERED: meTOproloL SUCCINATE 50 MG (TOPROL XL) TAB PO NR (15:00)
--- NOTE | 2018-03-30 15:21 | History & Physical-Hospitalist ---
History of Present Illness HPI/Chief Complaint The patient is a 77-year-old white female who was admitted after she presented to the emergency room with stroke symptoms. 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 She had previously taken Xarelto for atrial fibrillation. This had been stopped for the previous 2 days. While in the process she was noted to have difficulty speaking and was sent to the emergency room for further evaluation. She reports that she was and still is frustrated by her inability to say what she wishes to. She really exhibits no motor abnormalities. She received TPA and was felt to be somewhat improved before she left the emergency room. The findings were automated through the stroke program. Date Seen 03/30/18 Time Seen by a Provider: 15:19 Attending Physician Earl Mcarthur MD PCP No,Local Physician Referring Physician Date of Admission Mar 30, 2018 at 14:01 Home Medications & Allergies Home Medications Reviewed patient Home Medication Reconciliation performed by pharmacy medication reconciliations resident care technician and/or nursing. Patients Allergies have been reviewed. Allergies Allergies Coded Allergies butorphanol (Verified Allergy, Unknown, TONGUE SWELLED, 03/26/18) codeine (Verified Allergy, Unknown, ITCHING, 03/26/18) Past Dbdkhtb-Snejzq-Ywovtl Hx Past Med/Social Hx: Reviewed Nursing Past Med/Soc Hx Patient Social History Alcohol Use: Denies Use Recreational Drug Use: No Smoking Status: Never a Smoker Recent Foreign Travel: No Contact w/other who traveled: No Recent Hopitalizations: No Recent Infectious Disease Expo: No Immunizations Up To Date Date of Influenza Vaccine: Nov 09, 2017 Seasonal Allergies Seasonal Allergies: No Past Medical History Musculoskeletal: Arthritis, Fractures History of Blood Disorders: No Family History Reviewed Nursing Family Hx Cardiovascular disease 19 FATHER Completed stroke 19 MOTHER FH: diabetes mellitus 19 FATHER Physical Exam Physical Exam Vital Signs Vital Signs - First Documented 03/30/18 03/30/18 10:47 14:26 Pulse 99 Resp 18 B/P (MAP) 170/96 (120) Pulse Ox 99 O2 Delivery Room Air O2 Flow Rate 2.00 Capillary Refill : Less Than 3 Seconds Height, Weight, BMI Height: 5'9.00" Weight: 165lbs. 0.0oz. [id number]; 23.6 BMI Method:Stated Results Results/Procedures Labs Laboratory Tests 03/30/18 10:56 Patient resulted labs reviewed. EARL MCARTHUR MD Mar 30, 2018 15:21
--- NOTE | 2018-03-30 15:21 | Pulmonary Consultation ---
History of Present Illness History of Present Illness Date of Consultation 03/30/18 15:16 Time Seen by Provider: 15:22 Date of Admission History of Present Illness 77yo with hx of Afib presented to ED secondary to progressive confusion, and dysphonia. denies CP, palpitations, syncope. In the ED she was dx with acute CVA and was treated with TPA. She was scheduled for left total knee replacement today. She has been off xeralto for 2 days. At her preop visit she was found to have confusion and dysphonia. I am consulted for ICU management. PT does have a hx of TIAs in the past. Allergies and Home Medications Allergies Coded Allergies: butorphanol (Verified Allergy, Unknown, TONGUE SWELLED, 03/26/18) codeine (Verified Allergy, Unknown, ITCHING, 03/26/18) Home Medications B Complex with Vitamin C 1 Each Tablet, 1 TAB PO DAILY, (Reported) Bumetanide 2 Mg Tablet, 2 MG PO DAILY PRN for SWELLING, (Reported) Calcium Carbonate 600 Mg Tablet, 600 MG PO DAILY, (Reported) Cholecalciferol (Vitamin D3) 1,000 Unit Tablet, 1,000 UNIT PO DAILY, (Reported) Escitalopram Oxalate 10 Mg Tablet, 10 MG PO DAILY, (Reported) Estrogens Conjugated 30 Gm Cr, 1 APPFUL VG SuWe, (Reported) Glucosamine Sulfate 2Kcl 1,000 Mg Tablet, 1,000 MG PO DAILY, (Reported) Levothyroxine Sodium 150 Mcg Tablet, 150 MCG PO DAILY, (Reported) Loratadine 10 Mg Tablet, 10 MG PO DAILY PRN for ALLERGIES, (Reported) Metoprolol Succinate 50 Mg Tab.er.24h, 50 MG PO HS, (Reported) Mv-Mn/Folic Acid/Calcium/Vit K 1 Each Tablet, 1 TAB PO DAILY, (Reported) Potassium Chloride 20 Meq Tablet.er, 20 MEQ PO DAILY PRN for WHEN TAKING BUMETANIDE, (Reported) Rivaroxaban 20 Mg Tablet, 20 MG PO DAILY, (Reported) Past Qqhflar-Bzzbgl-Rymmze Hx Past Med/Social Hx: Reviewed Nursing Past Med/Soc Hx Patient Social History Alcohol Use: Denies Use Recreational Drug Use: No Smoking Status: Never a Smoker Recent Foreign Travel: No Contact w/Someone Who Travel: No Recent Infectious Disease Expo: No Recent Hopitalizations: No Immunizations Up To Date Date of Influenza Vaccine: Nov 09, 2017 Seasonal Allergies Seasonal Allergies: No Past Medical History Surgeries: Yes (R wrist fx, R hip fx, knee scope, breast bx) Respiratory: No Cardiac: Yes Neurological: Yes Genitourinary: No Gastrointestinal: No Musculoskeletal: Yes Arthritis, Fractures Endocrine: Yes HEENT: No Cancer: No Psychosocial: No Integumentary: No Blood Disorders: No Family Medical History Reviewed Nursing Family Hx Cardiovascular disease 19 FATHER Completed stroke 19 MOTHER FH: diabetes mellitus 19 FATHER Sepsis Event Evaluation Height, Weight, BMI Height: 5'9.00" Weight: 165lbs. 0.0oz. 74.871686kt; 23.6 BMI Method:Stated Exam Exam Vital Signs Date Time Temp Pulse Resp B/P (MAP) Pulse Ox O2 Delivery O2 Flow Rate FiO2 03/30/18 15:06 80 03/30/18 14:26 84 18 158/80 (106) 99 Nasal Cannula 2.00 03/30/18 12:19 93 18 152/80 (104) 95 Room Air 03/30/18 11:39 152/105 (121) 03/30/18 10:47 99 18 170/96 (120) 99 Room Air Height & Weight Height: 5'9.00" Weight: 165lbs. 0.0oz. 74.827918zs; 23.6 BMI Method:Stated Capillary Refill: Less Than 3 Seconds Gastrointestinal: non tender, soft Results Lab Laboratory Tests 03/30/18 10:56 Assessment/Plan Assessment/Plan Nonhemorrhagic CVA s/p TPA -Check echo -Carotid dopplers Chronic Afib with RVR -Xarelto has been on hold for 2days in prep for knee replacement HTN GUSTAVO RICHARDS DO Mar 30, 2018 15:21
--- NOTE | 2018-03-30 15:38 | NUR ---
MED REC WAS COMPLETED IN PREOP A FEW DAYS AGO, I REVIEWED THE MEDICATIONS THEY WERE REPORTED THEN.
[2018-03-30] MEDS ORDERED: DILTIAZEM 125 MG/NS 100 ML IV SCH ×2 (16:15)
[2018-03-30] MEDS ORDERED: ONDANSETRON 4 MG/2 ML (SDV) Z0FRAN IV PRN (16:15)
--- NOTE | 2018-03-30 17:22 | Consultation-Cardiology ---
HPI-Cardiology Cardiology Consultation: Date of Consultation 03/30/18 Time Seen by a Provider: 16:15 Date of Admission Attending Physician Earl Correa MD Admitting Physician No,Local Physician Consulting Physician ROSA MAXWELL MD, MA, FACP, FACC, FSCAI, CCDS Physician requesting consult: Dr Correa Primary transfer knitter: Dr Sahu ([place], [place]) HPI: Chief Complaint: CC: CVA, A-fib with RVR Ms. Curtis is a 77 year old female who is being admitted to ICU from the ED. Her primary transfer knitter is Dr. Sahu at [facility]. Her daughter and are at the bedside. I have seen her in the ED. She reports she has chronic a-fib for which she is on Xarelto. However, d/t a scheduled knee replacement which was to be done today she had been off the Xarelto for 2 days. Daughter reports she has been in her usual state of health up until this morning when she began to have confusion and difficulty with speech when continued to progress while waiting for her surgery. She was brought to the ED from out pt surgery. At the time of this exam she is searching for words during conversation. She denies any c/o CP, palpitations, syncope or near syncope. No c/o LE swelling. She reports she does have a PPM which was implanted "several years ago" d/t a slow HR. She reports she take Metoprolol for HR and BP. Review of Systems-Cardiology Review of Systems Constitutional: No chills, No fever Eyes: No vision change Ears/Nose/Throat: No epistaxis, No recent hearing loss Respiratory: As described under HPI Cardiovascular: As described under HPI Gastrointestinal: No constipation, No diarrhea, No nausea, No vomiting Genitourinary: No dysuria, No hematuria : No Musculoskeletal: no symptoms reported Skin: No rash, No ulcerations Psychiatric/Neurological: As described under HPI Hematologic: No bleeding abnormalities All Other Systems Reviewed Negative Unless Noted: Yes QOW-Ptsusf-Oqxepq Hx Patient Social History Alcohol Use: Denies Use Recreational Drug Use: No Smoking Status: Never a Smoker Recent Foreign Travel: No Recent Infectious Disease Expo: No Hospitalization with Isolation: Denies Immunizations Up To Date Date of Influenza Vaccine: Nov 09, 2017 Past Medical History PMH As described under Assessment. Family Medical History Family Medical History: Reported h/o of father having CAD and DM. Mother had a CVA. Family History: Cardiovascular disease 19 FATHER Completed stroke 19 MOTHER FH: diabetes mellitus 19 FATHER Allergies and Home Medications Allergies Coded Allergies: butorphanol (Verified Allergy, Unknown, TONGUE SWELLED, 03/26/18) codeine (Verified Allergy, Unknown, ITCHING, 03/26/18) Home Medications B Complex with Vitamin C 1 Each Tablet, 1 TAB PO DAILY, (Reported) Bumetanide 2 Mg Tablet, 2 MG PO DAILY PRN for SWELLING, (Reported) Calcium Carbonate 600 Mg Tablet, 600 MG PO DAILY, (Reported) Cholecalciferol (Vitamin D3) 1,000 Unit Tablet, 1,000 UNIT PO DAILY, (Reported) Escitalopram Oxalate 10 Mg Tablet, 10 MG PO DAILY, (Reported) Estrogens Conjugated 30 Gm Cr, 1 APPFUL VG SuWe, (Reported) Glucosamine Sulfate 2Kcl 1,000 Mg Tablet, 1,000 MG PO DAILY, (Reported) Levothyroxine Sodium 150 Mcg Tablet, 150 MCG PO DAILY, (Reported) Loratadine 10 Mg Tablet, 10 MG PO DAILY PRN for ALLERGIES, (Reported) Metoprolol Succinate 50 Mg Tab.er.24h, 50 MG PO HS, (Reported) Mv-Mn/Folic Acid/Calcium/Vit K 1 Each Tablet, 1 TAB PO DAILY, (Reported) Potassium Chloride 20 Meq Tablet.er, 20 MEQ PO DAILY PRN for WHEN TAKING BUMETANIDE, (Reported) Rivaroxaban 20 Mg Tablet, 20 MG PO DAILY, (Reported) Patient Home Medication List Home Medication List Reviewed: Yes Physical Exam-Cardiology Physical Exam Vital Signs/I&O 03/30/18 03/30/18 03/30/18 03/30/18 10:47 11:39 12:19 13:00 Pulse 99 93 80 Resp 18 18 12 B/P (MAP) 170/96 (120) 152/105 (121) 152/80 (104) 151/73 (99) Pulse Ox 99 95 92 O2 Delivery Room Air Room Air Room Air 03/30/18 03/30/18 03/30/18 03/30/18 14:26 14:50 14:50 15:06 Temp 98.0 Pulse 84 81 80 Resp 18 21 B/P (MAP) 158/80 (106) 151/73 (99) Pulse Ox 99 94 O2 Delivery Nasal Cannula Room Air Room Air O2 Flow Rate 2.00 03/30/18 16:00 Pulse Ox 94 O2 Delivery Room Air Capillary Refill : Less Than 3 Seconds Constitutional: well-developed, well-nourished, other (Word searching) HEENT: PERRL, hearing is well preserved, oral hygience is good Neck: No carotid bruit; carotid pulses are 2 + bilaterally Respiratory: No accessory muscle use, No respiratory distress; chest expansion is symmetric, chest is bilaterally symmetric, lungs clear to auscultation Cardiovascular: irregularly irregular; No JVD; S1 and S2 Gastrointestinal: No tender; soft, round, audible bowel sounds Rectal: deferred Genital/Rectal: other (Urinary catheter to DD; clear yellow urine) Extremities: no lower extremity edema bilateral Neurologic/Psychiatric: alert (appropriate, word search - multiple attempts to verbalize and location, but does report accurately ), other (word searching) , grossly intact, power is 5/5 both on sides Skin: No rash, No ulcerations; other (bruising to right wrist at site of IV) Data Review Labs Laboratory Tests 03/30/18 10:54: Glucometer 95 03/30/18 10:56: White Blood Count 6.8, Red Blood Count 3.97L, Hemoglobin 13.1, Hematocrit 39, Mean Corpuscular Volume 98, Mean Corpuscular Hemoglobin 33, Mean Corpuscular Hemoglobin Concent 34, Red Cell Distribution Width 14.1, Platelet Count 225, Mean Platelet Volume 9.3, Neutrophils (%) (Auto) 55, Lymphocytes (%) (Auto) 28, Monocytes (%) (Auto) 12, Eosinophils (%) (Auto) 4, Basophils (%) (Auto) 0, Neutrophils # (Auto) 3.7, Lymphocytes # (Auto) 1.9, Monocytes # (Auto) 0.8, Eosinophils # (Auto) 0.3, Basophils # (Auto) 0.0, Prothrombin Time 13.3, INR Comment 1.0, Activated Partial Thromboplast Time 32, D-Dimer 0.61H, Sodium Level 139, Potassium Level 4.3, Chloride Level 102, Carbon Dioxide Level 28, Anion Gap 9, Blood Urea Nitrogen 16, Creatinine 0.78, Estimat Glomerular Filtration Rate > 60, BUN/Creatinine Ratio 21, Glucose Level 87, Calcium Level 10.1, Corrected Calcium 10.0, Total Bilirubin 0.5, Aspartate Amino Transf (AST/ SGOT) 29, Alanine Aminotransferase (ALT/SGPT) 17, Alkaline Phosphatase 54, Troponin I < 0.028, Total Protein 7.1, Albumin 4.1 03/30/18 11:35: Urine Color YELLOW, Urine Clarity CLEAR, Urine pH 8, Urine Specific [place] 1.010L, Urine Protein NEGATIVE, Urine Glucose (UA) NEGATIVE, Urine Ketones NEGATIVE, Urine Nitrite NEGATIVE, Urine Bilirubin NEGATIVE, Urine Urobilinogen NORMAL, Urine Leukocyte Esterase NEGATIVE, Urine RBC (Auto) NEGATIVE, Urine RBC NONE, Urine WBC NONE, Urine Squamous Epithelial Cells RARE, Urine Crystals PRESENTH, Urine Amorphous Sediment RARE DUDLEY PHOSPHATEH, Urine Bacteria NEGATIVE , Urine Casts NONE, Urine Mucus NEGATIVE, Urine Culture Indicated NO A/P-Cardiology Assessment/Admission Diagnosis Non-hemorrhagic CVA diagnosed on 03-30-18 with confusion and aphasia - treated with tPA H/O TIA x 2 in the past Chronic A-fib with RVR OAC with Xarelto - had been withheld for 2 days prior in preparation for knee replacement H/O PPM d/t bradycardia (per pt report) - [employer] - followed by Dr. Sahu at [facility] - last interrogation Mar 02, 2018 HTN Discussion and Recomendations Non-hemorrhagic CVA for which she received tPA in the ED on 03-30-18. We advise Xarelto 20mg be resumed 24 hours after tPA dose which would be approx 1330 on . PPM implanted d/t bradycardia per pt report. This is followed by Dr. Sahu at [facility] in [place], [place] - device reportedly last interrogated on (Dr. Sahu's office called by ICU nurse to verify device is NOT an AICD and last interrogation date) Chronic a-fib - presented with a-fib with RVR - rate improved with Cardizem gtt HTN - not well controlled - resume BB - Toprol XL 50mg daily Request records from [facility] - Dr. Sahu Management of stroke per [facility] team Monitor lab Further recs will be based on her hospital course We would like to thank medical services for this consult Clinical Quality Measures DVT/VTE Risk/Contraindication: Risk Factor Score Per Nursin RFS Level Per Nursing on Admit: 2=Moderate ROSA MAXWELL MD FACP FAC CCDS Mar 30, 2018 17:22
[2018-03-30] MEDS: NS IV 1000 ML 1,000 ML IV SCH (17:30)
[2018-03-30] MEDS ORDERED: ACETAMINOPHEN 325 MG TABLET PO NR (20:18)
[2018-03-31] VITALS (14 sets, daily range): BP systolic 107–171; BP diastolic 54–98
[2018-03-31] MEDS ORDERED: ACETAMINOPHEN 325 MG TABLET ONE (01:39)
[2018-03-31] MEDS ORDERED: ACETAMINOPHEN 325 MG TABLET PO ONE (04:15)
--- NOTE | 2018-03-31 04:27 | Pulmonary Progress Note ---
Subjective Time Seen by a Provider: 04:51 Subjective/Events-last exam Dysphonia is now resolved. PT is back to her baseline. Sepsis Event Evaluation Height, Weight, BMI Height: 5'8.00" Weight: 166lbs. 0.0oz. 75.482591zy; 25.2 BMI Method:Stated Exam Exam Vital Signs Date Time Temp Pulse Resp B/P (MAP) Pulse Ox O2 Delivery O2 Flow Rate FiO2 03/31/18 04:15 95 Nasal Cannula 2.00 03/31/18 03:20 98.1 Nasal Cannula 2.00 03/31/18 03:00 70 12 112/63 (79) 95 Nasal Cannula 2.00 03/31/18 02:00 73 20 107/54 (71) 94 Nasal Cannula 2.00 03/31/18 01:15 73 17 93 Nasal Cannula 2.00 03/31/18 01:00 72 13 120/66 (84) 91 Room Air 03/31/18 01:00 72 03/31/18 00:00 69 12 113/70 (84) 93 Room Air 03/30/18 23:40 95 Room Air 03/30/18 23:35 98.3 03/30/18 22:00 71 14 127/65 (85) 94 Room Air 03/30/18 21:00 75 15 114/74 (87) 95 Room Air 03/30/18 20:00 93 Room Air 03/30/18 20:00 73 17 125/59 (81) 92 Room Air 03/30/18 19:50 98.6 76 18 93 Room Air 03/30/18 19:00 70 03/30/18 19:00 70 10 137/63 (87) 96 Room Air 03/30/18 18:00 176 13 176/87 (116) 94 Room Air 03/30/18 17:00 90 11 152/70 (97) 98 Room Air 03/30/18 16:00 94 Room Air 03/30/18 16:00 79 11 141/67 (91) 93 Room Air 03/30/18 15:06 80 03/30/18 15:00 80 11 162/102 (122) 92 Room Air 03/30/18 14:50 98.0 81 21 151/73 (99) 94 Room Air 03/30/18 14:50 Room Air 03/30/18 14:26 84 18 158/80 (106) 99 Nasal Cannula 2.00 03/30/18 12:19 93 18 152/80 (104) 95 Room Air 03/30/18 11:39 152/105 (121) 03/30/18 10:47 99 18 170/96 (120) 99 Room Air I & O 03/31/18 07:00 Intake Total 470 ml Output Total 2550 ml Balance -2080 ml Height & Weight Height: 5'8.00" Weight: 166lbs. 0.0oz. 75.473800hd; 25.2 BMI Method:Stated General Appearance: No Apparent Distress, WD/WN HEENT: PERRL/EOMI, Pharynx Normal Neck: Full Range of Motion, Non Tender, Supple Respiratory: Chest Non Tender, Lungs Clear, No Accessory Muscle Use, No Respiratory Distress Cardiovascular: Regular Rate, Rhythm, No Edema Capillary Refill: Less Than 3 Seconds Gastrointestinal: non tender, soft Neurologic/Psychiatric: Alert, Oriented x3 Skin: Normal Color Results Lab Laboratory Tests 03/30/18 10:56 Assessment/Plan Assessment/Plan Nonhemorrhagic CVA s/p TPA -Check echo -Carotid dopplers -Check CT of head w/o contrast today r/o bleed Chronic Afib with RVR -Xarelto has been on hold for 2days in prep for knee replacement -Cardizem gtt. HTN GUSTAVO RICHARDS DO Mar 31, 2018 04:27
[2018-03-31] MEDS ORDERED: ACETAMINOPHEN 325 MG TABLET PO PRN (05:00)
[2018-03-31] MEDS ORDERED: POTASSIUM CL 10MEQ/50ML IVPB 50 ML IV SCH (06:00)
[2018-03-31] MEDS ORDERED: KCL 20 MEQ TAB (K-DUR) PO SCH (06:00)
[2018-03-31] MEDS ORDERED: MAGNESIUM 1 GM/100 ML IVPB 100 ML IV SCH (06:00)
--- NOTE | 2018-03-31 07:31 | Diagnostic Imaging Report ---
INDICATION: Stroke, cardiac pacemaker COMPARISON: 03/30/2018 FINDINGS: Single view of the chest demonstrates stable cardiac enlargement without pulmonary edema. There is no pneumothorax, effusion or infiltrate. Pacemaker is stable. Osseous structures are age-appropriate. IMPRESSION: Stable cardiac enlargement without pulmonary edema or infiltrate. Dictated by: Dictated on workstation # [id number]
--- NOTE | 2018-03-31 08:44 | Progress Note-Cardiology ---
Cardiology SOAP Progress Note Subjective: Sitting up in bed, alert, oriented x 3. States she is feeling much better today. No difficulty speaking. No c/o CP, palpitations or dyspnea Objective: I&O/Vital Signs 03/30/18 03/30/18 03/30/18 03/31/18 22:00 23:35 23:40 00:00 Temp 98.3 Pulse 71 69 Resp 14 12 B/P (MAP) 127/65 (85) 113/70 (84) Pulse Ox 94 95 93 O2 Delivery Room Air Room Air Room Air 03/31/18 03/31/18 03/31/18 03/31/18 01:00 01:00 01:15 02:00 Pulse 72 72 73 73 Resp 13 17 20 B/P (MAP) 120/66 (84) 107/54 (71) Pulse Ox 91 93 94 O2 Delivery Room Air Nasal Cannula Nasal Cannula O2 Flow Rate 2.00 2.00 03/31/18 03/31/18 03/31/18 03/31/18 03:00 03:20 04:00 04:15 Temp 98.1 Pulse 70 70 Resp 12 11 B/P (MAP) 112/63 (79) 129/69 (89) Pulse Ox 95 96 95 O2 Delivery Nasal Cannula Nasal Cannula Nasal Cannula Nasal Cannula O2 Flow Rate 2.00 2.00 2.00 2.00 03/31/18 03/31/18 03/31/18 03/31/18 05:00 06:00 07:00 07:00 Pulse 69 69 70 69 Resp 12 9 30 B/P (MAP) 125/72 (89) 133/71 (91) 132/75 (94) Pulse Ox 98 93 98 O2 Delivery Nasal Cannula Nasal Cannula Nasal Cannula O2 Flow Rate 2.00 2.00 2.00 03/31/18 03/31/18 03/31/18 03/31/18 08:00 08:00 08:00 08:14 Temp 98.1 Pulse 71 Resp 18 B/P (MAP) 141/78 (99) Pulse Ox 99 96 O2 Delivery Nasal Cannula Room Air Nasal Cannula O2 Flow Rate 2.00 2.00 03/31/18 00:00 Intake Total 320 ml Output Total 2200 ml Balance -1880 ml Weight (Pounds): 167 Weight (Ounces): 2.0 Weight (Calculated Kilograms): 75.816935 Constitutional: AAO x 3, well-developed, well-nourished Respiratory: No accessory muscle use, No respiratory distress; chest expansion is symmetric, chest is bilaterally symmetric, lungs clear to auscultation Cardiovascular: irregularly irregular; No JVD; S1 and S2 Gastrointestional: No tender; soft, round, audible bowel sounds Genital/Rectal: other (Urinary catheter to DD; clear yellow urine) Extremities: no lower extremity edema bilateral Neurologic/Psychiatric: grossly intact, power is 5/5 both on sides Skin: No rash, No ulcerations Results/Procedures: Labs Laboratory Tests 03/30/18 10:54: Glucometer 95 03/30/18 10:56: White Blood Count 6.8, Red Blood Count 3.97L, Hemoglobin 13.1, Hematocrit 39, Mean Corpuscular Volume 98, Mean Corpuscular Hemoglobin 33, Mean Corpuscular Hemoglobin Concent 34, Red Cell Distribution Width 14.1, Platelet Count 225, Mean Platelet Volume 9.3, Neutrophils (%) (Auto) 55, Lymphocytes (%) (Auto) 28, Monocytes (%) (Auto) 12, Eosinophils (%) (Auto) 4, Basophils (%) (Auto) 0, Neutrophils # (Auto) 3.7, Lymphocytes # (Auto) 1.9, Monocytes # (Auto) 0.8, Eosinophils # (Auto) 0.3, Basophils # (Auto) 0.0, Prothrombin Time 13.3, INR Comment 1.0, Activated Partial Thromboplast Time 32, D-Dimer 0.61H, Sodium Level 139, Potassium Level 4.3, Chloride Level 102, Carbon Dioxide Level 28, Anion Gap 9, Blood Urea Nitrogen 16, Creatinine 0.78, Estimat Glomerular Filtration Rate > 60, BUN/Creatinine Ratio 21, Glucose Level 87, Calcium Level 10.1, Corrected Calcium 10.0, Total Bilirubin 0.5, Aspartate Amino Transf (AST/ SGOT) 29, Alanine Aminotransferase (ALT/SGPT) 17, Alkaline Phosphatase 54, Troponin I < 0.028, Total Protein 7.1, Albumin 4.1 03/30/18 11:35: Urine Color YELLOW, Urine Clarity CLEAR, Urine pH 8, Urine Specific [place] 1.010L, Urine Protein NEGATIVE, Urine Glucose (UA) NEGATIVE, Urine Ketones NEGATIVE, Urine Nitrite NEGATIVE, Urine Bilirubin NEGATIVE, Urine Urobilinogen NORMAL, Urine Leukocyte Esterase NEGATIVE, Urine RBC (Auto) NEGATIVE, Urine RBC NONE, Urine WBC NONE, Urine Squamous Epithelial Cells RARE, Urine Crystals PRESENTH, Urine Amorphous Sediment RARE DUDLEY PHOSPHATEH, Urine Bacteria NEGATIVE , Urine Casts NONE, Urine Mucus NEGATIVE, Urine Culture Indicated NO A/P: Assessment: Non-hemorrhagic CVA diagnosed on 03-30-18 with confusion and aphasia - treated with tPA - resolution of symptoms H/O TIA x 2 in the past Chronic A-fib with RVR OAC with Xarelto - had been withheld for 2 days prior in preparation for knee replacement H/O PPM d/t bradycardia (per pt report) - [employer] - followed by Dr. Sahu at [facility] - last interrogation Mar 02, 2018 HTN Plan: Non-hemorrhagic CVA for which she received tPA in the ED on 03-30-18. We advise Xarelto 20mg be resumed 24 hours after tPA dose which would be approx 1330 on . Chronic a-fib - presented with a-fib with RVR - rate improved with Cardizem gtt - change IV Diltiazem to oral Continue BB Request records from [facility] - Dr. Sahu Management of stroke per stoke team Monitor lab Echocardiogram pending Carotid u/s pending Physician Assessment Physician Assessment No cp or palp or syncope or shortness of breath Lungs: clear Cor: irreg Ext: no c/c/e A&R * As documented in our note above that I updated (italics) and as noted below * Resume Xarelto 24 hr post tPA * Oral long-acting dilt for vent rate control * F/u with Dr Sahu, her a r specialist, KELLEE * She understands all of the above and states she will comply DEEPA MONTILLA [employer] Mar 31, 2018 08:44 ROSA MAXWELL MD FAC FAC CCDS Mar 31, 2018 09:30
[2018-03-31] MEDS ORDERED: DILTIAZEM 240 MG (CARDIZEM CD) CAP PO NR (08:45)
[2018-03-31] MEDS ORDERED: meTOproloL SUCCINATE 50 MG (TOPROL XL) TAB PO SCH (09:00)
--- NOTE | 2018-03-31 10:32 | ST Dysphagia Evaluation ---
Speech Evaluation-General Medical Diagnosis CVA Onset Date: Mar 31, 2018 Therapy Diagnosis Therapy Diagnosis: Aphasia, Dysphagia Precautions Precautions: Aspiration Precautions/Isolations: Fall Prevention, Standard Precautions Medical History Reviewed History: Yes Speech PLF/Current-Dysphagia Prior Level of Function Patient lived at home and was independent for most of her daily needs. Subjective Patient was pleasant and talkative during the evaluation. Cognitive Status Patient is oriented to all concepts. Oral Motor Skills Dentition: Natural Current Food Consistancy: Clear Liquids Ability to Follow Directions: Excellent Oral Expression Ability: No Impairment Patient initially had slurred speech which has resolved at this time. Voice Voice Phonatory-Based Quality: Normal Oral-Facial Assessment Oral-Facial Dentition: Normal Labial Seal Description: Normal Smile: Normal Puff Cheeks: Normal Lingual Protrusion: Normal Lingual ROM: Normal Lingual Strength: Normal Volitional Dry Swallow: Yes Voluntary Cough: Yes Can Clear Throat Volitionally: Yes Dysphagia Evaluation Consistencies Presented: Regular, Thin Liquid, Mechanical Soft Oral phase within normal function. Pharyngeal phase within normal limits. Dietary Recommendations: Regular Liquid Recommendations: Thin Swallowing Precautions: Alternate Liquids/Solids, Double Swallow, Sitting Upright 90 Degrees, Sitting 90 Degrees 30 Post Intake Dysphagia Evaluation Summary Patient is a pleasant 77 year old female who was registering yesterday for a knee replacement. She had been off of her blood thinners for 2 days due to pending surgery. Patient experienced stroke symptoms and was sent to the ED. She was treated with TPA and her symptoms have since resolved. She was given a Bedside Dysphagia Evaluation with results indicating normal swallowing for all consistencies. Patient was placed on a regular diet. Barriers to Learning New CVA Speech-Plan Patient/Family Goals Patient/Family Goals: Patient plans to return home upon hospital discharge. Treatment Plan Speech Therapy Treatment Plan: Continue Plan of Care Patient is not recommended for skilled therapy. Treatment Duration: Apr 02, 2018 Frequency: 1 time per week Estimated Hrs Per Day: .25 hour per day Rehab Potential: Good Barriers to Learning: New onset CVA Pt/Family Agrees to Plan: Yes Safety Risks/Education Teaching Recipient: Patient Teaching Methods: Discussion Response to Teaching: Verbalize Understanding Education Topics Provided: Safe oral intake strategies. Time Speech Therapy Time In: 07:45 Speech Therapy Time Out: 08:00 Total Billed Time: 15 Billed Treatment Time [address] Mar 31, 2018 10:32
--- NOTE | 2018-03-31 11:45 | Diagnostic Imaging Report ---
PROCEDURE: US carotid duplex, bilateral. TECHNIQUE: Multiple real-time grayscale images were obtained over the carotid arteries in various projections, bilaterally. Additional spectral analysis and color Doppler duplex images were also obtained. INDICATION: Speech difficulty. FINDINGS: There are no prior carotid Doppler examinations available for comparison. The CTA head and neck exam of 03/30/2018 noted atherosclerotic disease involving both carotid systems but failed to show any sign of a hemodynamically significant stenosis. On this exam, there is mild/moderate hard and soft plaque formation in both carotid systems, particularly involving the carotid bifurcation on the left. The flow velocities fail to show any sign of a hemodynamically significant stenosis of the common or internal carotid arteries. Both vertebral arteries are noted and there is antegrade flow bilaterally. IMPRESSION: There is mild/moderate atherosclerotic disease involving both carotid systems particularly the carotid bifurcation on the left. There is no evidence for a hemodynamically significant stenosis of the common or internal carotid arteries, however. Parameters based on the consensus panel Garsia-Scale and Doppler ultrasound criteria published December 2002, Radiology, Volume 229. DOPPLER (peak systolic velocity M/S Right Left CCA ICA Proximal ICA Mid ICA Distal RATIO ECA VERT Dictated by: Dictated on workstation # [id number]
[2018-03-31 11:52] LABS: BASOPHILS % (AUTO) 0 % (0-10); EOSINOPHILS # (AUTO) 0.2 10^3/uL (0.0-0.3); EOSINOPHILS % (AUTO) 3 % (0-10); HEMATOCRIT 36 % (35-52); LYMPHOCYTES # (AUTO) 1.8 X 10^3 (1.0-4.0); LYMPHOCYTES % (AUTO) 28 % (12-44); MEAN CORPUSCULAR HEMOGLOBIN 33 PG (25-34); MEAN CORPUSCULAR HGB CONC 33 G/DL (32-36); MEAN CORPUSCULAR VOLUME 98 FL (80-99); MEAN PLATELET VOLUME 9.5 FL (7.4-10.4); MONOCYTES # (AUTO) 0.8 X 10^3 (0.0-1.0); MONOCYTES % (AUTO) 12 % (0-12); NEUTROPHILS # (AUTO) 3.8 X 10^3 (1.8-7.8); NEUTROPHILS % (AUTO) 57 % (42-75); PLATELET COUNT 192 10^3/uL (130-400); RED CELL DISTRIBUTION WIDTH 14.1 % (10.0-14.5); WHITE BLOOD COUNT 6.7 10^3/uL (4.3-11.0)
[2018-03-31 12:17] LABS: ALANINE AMINOTRANSFERASE 16 U/L (0-55); ALBUMIN 3.8 GM/DL (3.2-4.5); ALKALINE PHOSPHATASE 48 U/L (40-136); BILIRUBIN,TOTAL 0.7 MG/DL (0.1-1.0); BUN/CREATININE RATIO 19; CALCIUM 9.2 MG/DL (8.5-10.1); CARBON DIOXIDE 26 MMOL/L (21-32); CHLORIDE 101 MMOL/L (98-107); CHOLESTEROL 215 MG/DL (< 200); CREATININE SERUM 0.67 MG/DL (0.60-1.30); GFR ESTIMATED > 60; GLUCOSE 87 MG/DL (70-105); HDL CHOLESTEROL 53 MG/DL (40-60); PHOSPHORUS 3.8 MG/DL (2.3-4.7); POTASSIUM 4.2 MMOL/L (3.6-5.0); SODIUM 133 MMOL/L (135-145); TOTAL PROTEIN 6.5 GM/DL (6.4-8.2); TRIGLYCERIDES 79 MG/DL (<150); VLDL CHOLESTEROL 16 MG/DL (5-40)
[2018-03-31] MEDS ORDERED: RIVAROXABAN 20 MG TABLET (XARELTO) PO NR (13:00)
[2018-03-31] MEDS: NS IV 1000 ML 1,000 ML IV SCH (13:20)
--- NOTE | 2018-03-31 13:37 | Progress Note-Hospitalist ---
Progress Note Progress Notes/Assess & Plan Date Seen 03/31/18 Time Seen by Provider: 13:31 Assessment & Plan The patient is alert and perky today. Her speech appears perfectly normal and her family confirms this to be so. As yesterday I find no gross evidence of motor loss. She is about to have her 24-hour brain scan. It is my opinion that it is most likely that this was an embolic stroke as she had been off of her Xarelto which had been prescribed for atrial fibrillation for 2 days or slightly more. Accordingly I called the stroke team and as it happens the neurologist on-call was the same to talk to Dr. Montano yesterday. She agreed that this was likely to have been embolic in the face of the preop discontinuation of her Xarelto. She stated that if the scan today showed a minimum or no evidence of injury that we should then go ahead and restart the Xarelto if it were moderate or larger we should wait several more days. This seems to be a reasonable approach. Physical exam: As noted above she was alert and enthusiastic. Speech was markedly improved today and her daughter states that that was her normal speech pattern. Lungs were clear to auscultation CV was irregular and the monitor was consistent with atrial fibrillation and a controlled rate. There were no discernible deficits in bilateral arms or legs as tested at the bedside. 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 2.chronic atrial fibrillation. Plan: Await CT report LUCILLE MCARTHUR MD Mar 31, 2018 13:37
--- NOTE | 2018-03-31 13:55 | NUR ---
THIS RN SPOKE WITH DR MCARTHUR REGARDING PT XARELTO AND CT RESULTS. DR MCARTHUR STATED HE TALKED TO RADIOLOGY AND [facility] REGARDING PT REPEAT CT AND IT WAS OK TO GIVE SCHEDULED XARELTO TODAY NOW.
--- NOTE | 2018-03-31 14:31 | Physical Therapy Evaluation ---
PT Evaluation-General Medical Diagnosis Admission Date Mar 30, 2018 at 14:01 Medical Diagnosis: CVA Onset Date: Mar 31, 2018 Therapy Diagnosis Therapy Diagnosis: abn gait Height/Weight Height (Feet): 5 Height (Inches): 8.00 Weight (Pounds): 167 Weight (Ounces): 2.0 Precautions Precautions/Isolations: Fall Prevention, Standard Precautions Weight Bear Status Right Lower Extremity: Right Weight Bearing/Tolerated Left Lower Extremity: Left Weight Bearing/Tolerated Referral Physician: Madeline Reason for Referral: Evaluation/Treatment Medical History Pertinent Medical History: Atrial Fib, OA (left knee) Additional Medical History A fib with RVR Current History Admitted with stroke like symptoms. Had planned to have a TKR this week. Reviewed History: Yes Social History Home: Single Level Current Living Status: Spouse Entry Into Home: Stairs With Railing Prior/Core FIM Prior Level of Function Therapy Code Descriptions/Definitions Functional [place] Measure: 0=Not Assessed/NA 4=Minimal Assistance 1=Total Assistance 5=Supervision or Setup 2=Maximal Assistance 6=Modified [place] 3=Moderate Assistance 7=Complete [place] Therapy Quality Codes: 6 Independent with activity with or without an assistive device 5 Patient requires set up or clean up by helper. Patient completes activity by themselves 4 Supervision or touching assist (CGA). [place] provide cues , steadying assist 3 The helper provides less than half the effort to complete the activity 2 The helper provides more than half the effort to complete the activity 1 Dependent. The helper does all the effort to complete an activity 7 Patient refused to complete or attempt activity 9 The patient did not perform the activity before the current illness or injury 88 Not attempted due to Medical conditions or safety concerns Functional Abilities and Goals: Independent: Patient completed the activities by him/herself, with or without an assistive device, with no assistance from a helper. Needed Some Help: Patient needed partial assistance from another person to complete activities. Dependent: A helper completed the activities for the patient. Unknown: Not Applicable: Bed Mobility: 7 Transfers (B,C,W/C) (FIM): 7 Gait: 6 (uses a cane intermittently) Indoor Mobility (Ambulation): Independent Stairs: Independent PT Evaluation-Current Subjective Pt reports she is moving around well and very anxious to return home. Pain Numeric Pain Scale: 0-No Pain Pt/Family Goals Pt is wanting to return home KELLEE Objective Patient Orientation: Person, Place, Time, Situation Problem Solving: Good ROM/Strength ROM Lower Extremities WNL Strength Lower Extremities WFL Integumentary/Posture Integumentary intact Bowel Incontinence: No Bladder Incontinence: No Posture upright and symmetrical Neuromuscular (Tone, Coordination, Reflexes) intact adn without noted deficit Sensory Vision: Wears Glasses Hearing: Hearing Aid/Aides Hand Dominance: Right Sensation Right Lower Extremit: Intact Sensation Left Lower Extremity: Intact Transfers Therapy Code Descriptions/Definitions Functional [place] Measure: 0=Not Assessed/NA 4=Minimal Assistance 1=Total Assistance 5=Supervision or Setup 2=Maximal Assistance 6=Modified [place] 3=Moderate Assistance 7=Complete [place] Transfers (B, C, W/C) (FIM): 6 Pt reports she was able to get out of bed without assist. Reprots she transferred on/off the toilet without assist. Gait Mode of Locomotion: Walk Anticipated Mode of Locomotion: Walk Gait (FIM): 6 Distance (FIM): 3=150 ft Gait Assistive Device: Cane Single Point Comments/Gait Description safe and steady gait with use of the cane Balance Sitting Static: Good Sitting Dynamic: Good Standing Static: Good Standing Dynamic: Good Assessment/Needs Pt is safe with ambulation with use of the cane. Will benefit from reassessment tomorrow to ensure her mobiltiy is safe. Will likely discharge after that visit. Rehab Potential: Good PT Casting Associate Goals Casting Associate Goals PT Casting Associate Goals Time Frame: Apr 02, 2018 Transfers (B,C,W/C) (FIM): 7 Gait (FIM): 6 PT Plan Problem List Problem List: Safety, Gait, Transfer Treatment/Plan Treatment Plan: Continue Plan of Care Treatment Plan: Education, Functional Activity Sherry, Gait, Safety, Transfers Treatment Duration: Apr 02, 2018 Frequency: 6 times per week Estimated Hrs Per Day: .25 hour per day Patient and/or Family Agrees t: Yes Safety Risks/Education Patient Education: Safety Issues Teaching Recipient: Patient Teaching Methods: Discussion Response to Teaching: Return Demonstration Time/GCodes Time In: 1350 Time Out: 1410 Total Billed Treatment Time: 20 Total Billed Treatment visit EVL 20 ELINA COPELAND PT Mar 31, 2018 14:31
--- NOTE | 2018-03-31 14:32 | Diagnostic Imaging Report ---
PROCEDURE: CT head without contrast. TECHNIQUE: Multiple contiguous axial images were obtained through the brain without the use of intravenous contrast. INDICATION: 24 hours post-TPA for stroke. Initial presentation for slurred speech. CORRELATION STUDY: 03/30/2018 FINDINGS: The ventricles and sulci appear unchanged. Scattered areas of decreased attenuation, while nonspecific, favor likely changes of small vessel ischemic disease. No definitive evidence for intracranial hemorrhage. No midline shift or mass effect. Intracranial vascular calcifications are present. Bony calvarium unremarkable. Paranasal sinuses and mastoid air cells are clear. IMPRESSION: 1. Stable appearing noncontrast CT examination of the head. Dictated by: Dictated on workstation # [id number]
[2018-03-31] MEDS ORDERED: DILT240C97 PO (14:56)
--- NOTE | 2018-03-31 15:19 | Occupational Therapy Eval ---
OT Evaluation-General/PLF Medical Diagnosis Admission Date Mar 30, 2018 at 14:01 Medical Diagnosis: CVA Onset Date: Mar 31, 2018 Therapy Diagnosis Therapy Diagnosis: Weakness Height/Weight Height (Feet): 5 Height (Inches): 8.00 Weight (Pounds): 167 Weight (Ounces): 2.0 Precautions Precautions/Isolations: Fall Prevention, Standard Precautions Safety Interventions: None Weight Bear Status Weight Bearing Restriction: Full Weight Bearing Location Restriction: L LE, R LE Referral Physician: Madeline Referral Reason: Activity Tolerance, Self Care, Evaluation/Treatment, Strengthening/ROM Medical History Pertinent Medical History: Atrial Fib, OA (left knee) Social History Home: Single Level Current Living Status: Spouse Entry Into Home: Stairs With Railing ADL-Prior Level of Function Therapy Code Descriptions/Definitions Functional [place] Measure: 0=Not Assessed/NA 4=Minimal Assistance 1=Total Assistance 5=Supervision or Setup 2=Maximal Assistance 6=Modified [place] 3=Moderate Assistance 7=Complete [place] Therapy Quality Codes: 6 Independent with activity with or without an assistive device 5 Patient requires set up or clean up by helper. Patient completes activity by themselves 4 Supervision or touching assist (CGA). Ray provide cues , steadying assist 3 The helper provides less than half the effort to complete the activity 2 The helper provides more than half the effort to complete the activity 1 Dependent. The helper does all the effort to complete an activity 7 Patient refused to complete or attempt activity 9 The patient did not perform the activity before the current illness or injury 88 Not attempted due to Medical conditions or safety concerns Functional Abilities and Goals: Independent: Patient completed the activities by him/herself, with or without an assistive device, with no assistance from a helper. Needed Some Help: Patient needed partial assistance from another person to complete activities. Dependent: A helper completed the activities for the patient. Unknown: Not Applicable: ADL PLOF Comments 77 yrs old, w/f lives at home with her & was Independent in all self care tasks , IADL's, ambulation & driving car . Self Care: Independent Functional Cognition: Independent DME/Equipment: Grab Bars Drive Self: Yes OT Current Status Subjective Pt in ICU sitting in Chair & her & daughter were seated beside her. Pt , daughter & agree for OT Eval . Pain Numeric Pain Scale: 3 Location: Left Location Body Site: Knee Pain Description: Ache, Dull Mental Status/Objective Patient Orientation: Person, Confused, Place, Time, Situation Attachments: IV, SCD's Current Glasses/Contacts: Yes Hearing Aids: No Dentures/Partials: No Hand Dominance: Right ADL-Treatment ADL-Current Pt participated in OT assessment. Pt came to Registration office for Registration for Left TKR But family noticed difficuilty speaking& thus admitted to ER where she was been diagnosed stroke with difficuilty speech. MS in Rt UE 4/5 & Lf UE 4+'5 grossly graded.. Pt sit to stand under supervision Independently. , Noticed mild slurred speech , Pt walk inside the room witout assistance. Therapy Code Descriptions/Definitions Functional [place] Measure: 0=Not Assessed/NA 4=Minimal Assistance 1=Total Assistance 5=Supervision or Setup 2=Maximal Assistance 6=Modified [place] 3=Moderate Assistance 7=Complete [place] Therapy Quality Codes: 6 Independent with activity with or without an assistive device 5 Patient requires set up or clean up by helper. Patient completes activity by themselves 4 Supervision or touching assist (CGA). Ray provide cues , steadying assist 3 The helper provides less than half the effort to complete the activity 2 The helper provides more than half the effort to complete the activity 1 Dependent. The helper does all the effort to complete an activity 7 Patient refused to complete or attempt activity 9 The patient did not perform the activity before the current illness or injury 88 Not attempted due to Medical conditions or safety concerns Eating (FIM): 7 Grooming (FIM): 7 Bathing (FIM): 0 Upper Body Dressing (FIM): 7 Lower Body Dressing (FIM): 5 Toileting (FIM): 6 Transfers (B, C, W/C) (FIM): 6 Toilet/Commode Transfer (FIM): 6 Tub Transfer (FIM): 0 Shower Transfer (FIM): 0 Education OT Patient Education: Correct positioning, Instructions to caregiver, Safety issues Teaching Recipient: Patient Teaching Methods: Demonstration Response to Teaching: Verbalize Understanding OT Short Term Goals Short Term Goals Time Frame: Apr 14, 2018 Eating(FIM): 7 Grooming(FIM): 7 Bathing(FIM): 7 Bathing Location: L Arm, R Arm, L Upper Leg, R Upper Leg, L Lower Leg ( including foot), R Lower Leg (including foot), Chest, Abdomen, Buttocks, Perineal Area Upper Body Dressing(FIM): 7 Lower Body Dressing(FIM): 7 Toileting(FIM): 7 Transfers (B,C,W/C) (FIM): 7 Toilet/Commode Transfer(FIM): 7 Tub Transfer(FIM): 7 Shower Transfer(FIM): 7 Additional Short Term Goals: 1-Demonstrate ADL Tasks, 2-Verbalize Understanding , 3-ImproveStrength/Sherry 1=Demonstrate adherence to instructed precautions during ADL tasks. 2=Patient will verbalize/demonstrate understanding of assistive devices/ modifications for ADL. 3=Patient will improve strength/tolerance for activity to enable patient to perform ADL's. OT Presser Machine Goals [facility] Goals Time Frame: Apr 28, 2018 Eating (FIM): 7 Grooming(FIM): 7 Bathing(FIM): 7 Bathing Location: L Arm, R Arm, L Upper Leg, R Upper Leg, L Lower Leg ( including foot), R Lower Leg (including foot), Chest, Abdomen, Buttocks, Perineal Area Upper Body Dressing(FIM): 7 Lower Body Dressing(FIM): 7 Toileting(FIM): 7 Transfers (B,C,W/C) (FIM): 7 Toilet/Commode Transfer(FIM): 7 Tub Transfer(FIM): 7 Shower Transfer(FIM): 7 Additional Goals: 1-Demonstrate ADL Tasks, 2-Verbalize Understanding, 3- ImproveStrength/Sherry 1=Demonstrate adherence to instructed precautions during ADL tasks. 2=Patient will verbalize/demonstrate understanding of assistive devices/ modifications for ADL. 3=Patient will improve strength/tolerance for activity to enable patient to perform ADL's. OT Education/Plan Problem List/Assessment Assessment: Decreased Activ Tolerance, Decreased Safety Aware, Decreased UE Strength, Impaired Funct Balance, Impaired Self-Care Skills Discharge Recommendations Plan/Recommendations: Continue POC Equpiment Recommendations-D/C: Iso Coordinator Patient/Family Goals To return home Independently with . Treatment Plan/Plan of Care Treatment,Training & Education: Yes Patient would benefit from OT for education, treatment and training to promote independence in ADL's, mobility, safety and/or upper extremity function for ADL' s. Plan of Care: ADL Retraining Treatment Duration: Apr 14, 2018 Frequency: 5 times per week Estimated Hrs Per Day: .25 hour per day Rehab Potential: Good Time/GCodes Start Time: 14:15 Stop Time: 14:39 Total Time Billed (hr/min): 24 Billed Treatment Time 1, EVM14 min, FA 10 min. Total 24 min KISHAN GALLEGOS OT Mar 31, 2018 15:19
[2018-04-01] MEDS ORDERED: DILTIAZEM 240 MG (CARDIZEM CD) CAP PO SCH (09:00)
[2018-04-01] MEDS ORDERED: RIVAROXABAN 20 MG TABLET (XARELTO) PO SCH (17:00)
--- NOTE | 2018-04-06 15:00 | Physician Query-Final Dx ---
Final Diagnosis Give Final Diagnosis Please give Final Diagnosis ZULEMA HOSKINS Apr 06, 2018 14:59
== END 2018-03-31 15:10 | disposition home or self-care (01) | DRG 553 ==
LOC: EDUNIT# 10:47 → ER 10:51 → ICU 14:01
PROVIDERS: ADMIT Internal Medicine; ATTEND Internal Medicine
DX: M17.12 Unilateral primary osteoarthritis, left knee (principal); I63.40 Cerebral infarction due to embolism of unspecified cerebral artery; R49.0 Dysphonia; R47.01 Aphasia; R41.0 Disorientation, unspecified; I48.2 Chronic atrial fibrillation; I10 Essential (primary) hypertension; Z95.0 Presence of cardiac pacemaker; Z79.01 Long term (current) use of anticoagulants
CPT/HCPCS: 0042T; 36415; 51702; 70450; 70496; 70498; 71045; 80053; 80061; 81000; 82962; 83735; 84100; 84443; 84484; 85025; 85379; 85610; 85730; 92977; 93041; 93306; 93880; 96365; 96366; 96367; 96375; 99291